=== PATIENT | male | born 1980 | race Caucasian/White ===

== ENCOUNTER 2017-04-15 12:23 | Inpatient (IN) | payer OTHER ==
[~2017-04-15] VITALS: Ht 177.8 cm; Wt 70.3 kg
[2017-04-15 15:00] VITALS: BP 103/67
[2017-04-15] MEDS ORDERED: ONDANSETRON PF 4 MG/2 ML VIAL. IV PRN (15:00)
[2017-04-15] MEDS ORDERED: ZOLPIDEM 5 MG TABLET. PO PRN (15:00)
[2017-04-15] MEDS ORDERED: ACETAMINOPHEN 325 MG TABLET. PO PRN (15:00)
[2017-04-15] MEDS: IV NORMAL SALINE 1000ML BAG 1,000 ML IV SCH (15:21)
[2017-04-15] MEDS: fentaNYL PF VIAL 100 MCG/2 ML VIAL IV PRN ×3 (15:21→20:39)
--- NOTE | 2017-04-15 15:45 | PDOC2 ---
GI CONSULT Reason For Consult: Choledocholithiasis HPI: HPI: 36 y/o male, , transferred from [facility]. Reports onset of abd pain last night while "trying to get comfortable in bed." First periumbilical then shifted to chest ("tightness" "hard to breath") and to RUQ. Currently comes in waves, mostly RUQ. Vomited once, small amount, says because of pain. Has never had pain this severe before but perhaps has had a few episodes of abd discomfort (periumbilical) after over-eating. Usually resolves quickly/ spontaneously, has tried Tums a few times which maybe help. This episode was much different w/ persistent, very severe pain. No fever, diarrhea, constipation, bleeding. No h/o reflux/heartburn. Rare NSAID use for MONTIEL. No previous EGD or colonoscopy. Last ate yesterday evening, hot dog and pizza. Workup at [facility]: unremarkable CBC, bili 1.2, AST 41, ALT 80, Alk Phos 66, tox screen + cannabinoids. CT A/P showed dilated gallbladder w/ intra/extrahepatic ductal dilation (17mm), concern for occult distal CBD calculi/stricture. Abd US showed cholelithiasis, intra/extrahepatic bile duct dilation (11mm) - can't exclude CBD stone, and echogenic foci in right hepatic lobe suggestive calculus or inspissated bile. PMH: PMH: wisdom teeth extraction, vasectomy FH: Family History: No pertinent hx Social History: Smoke: No ALCOHOL: none Drugs: Marijuana ROS: GEN: Denies fevers, chills, sweats HEENT: Denies blurred vision, sore throat CV: chest pain resolved RESP: SOA resolved GI: Per HPI : Denies hematuria, dysuria ENDO: Denies weight changes NEURO: Denies confusion, dizziness MSK: Denies weakness, joint pain/swelling SKIN: Denies jaundice, pruritus Vitals: Vitals: Vital Signs Date Time Temp Pulse Resp B/P (MAP) Pulse Ox O2 Delivery O2 Flow Rate FiO2 04/15/17 15:21 18 Room Air Labs: Labs: Reviewed from [facility] per HPI. Allergies: Coded Allergies: No Known Drug Allergies (Unverified , 04/15/17) Medications: Current Medications Medications (Trade) Dose Ordered Sig/[place] Route PRN Reason Start Time Stop Time Status Last Admin Dose Admin Sodium Chloride 1,000 ml @ 100 mls/hr Q10H IV 04/15/17 15:00 04/15/17 15:21 Fentanyl Citrate (Fentanyl 2ml Vial) 50 mcg PRN Q2HR PRN IV PAIN 04/15/17 15:00 04/15/17 15:21 Imaging: Imaging: Reviewed from [facility] per HPI. PE: GEN: NAD HEENT: Atraumatic, PERRL LUNGS: CTAB anteriorly HEART: RRR ABD: BS+, soft, most RUQ discomfort, some epigastric EXTREMITY: No edema SKIN: No rashes, no jaundice NEURO/PSYCH: A & O 3 A/P: A/P: Upper abd pain, cholelithiasis, dilated bile duct -pain onset last night ---> periumbilical to RUQ and chest, now mostly RUQ -imaging and labs from [facility] as above -- D/w Dr. Coronel, Dr. Elmore. MRCP for further eval - r/o choledochocele. Surgery consulted. LEW JAUREGUI April 15, 2017 15:45
--- NOTE | 2017-04-15 16:11 | PDOC1 ---
History and Physical Date of Admission Date of Admission DATE: 04/15/17 TIME: 16:08 Identification/Chief Complaint Chief Complaint abd pain Problems: Source Source: Chart review, Patient History of Present Illness History of Present Illness 36 y/o male, , transferred from [facility]. Reports onset of abd pain last night while "trying to get comfortable in bed." First periumbilical then shifted to chest ("tightness" "hard to breath") and to RUQ. Currently comes in waves, mostly RUQ. Vomited once, small amount, says because of pain. Has never had pain this severe before but perhaps has had a few episodes of abd discomfort (periumbilical) after over-eating. Usually resolves quickly/ spontaneously, has tried Tums a few times which maybe help. This episode was much different w/ persistent, very severe pain. No fever, diarrhea, constipation, bleeding. No h/o reflux/heartburn. Rare NSAID use for MONTIEL. No previous EGD or colonoscopy. Last ate yesterday evening, hot dog and pizza. Workup at [facility]: unremarkable CBC, bili 1.2, AST 41, ALT 80, Alk Phos 66, tox screen + cannabinoids. CT A/P showed dilated gallbladder w/ intra/extrahepatic ductal dilation (17mm), concern for occult distal CBD calculi/stricture. Abd US showed cholelithiasis, intra/extrahepatic bile duct dilation (11mm) - can't exclude CBD stone, and echogenic foci in right hepatic lobe suggestive calculus or inspissated bile. Past Medical History Cardiovascular: No pertinent hx Pulmonary: No pertinent hx GI: No pertinent hx Heme/Onc: No pertinent hx Hepatobiliary: No pertinent hx Psych: No pertinent hx Rheumatologic: No pertinent hx Infectious disease: No pertinent hx ENT: No pertinent hx Renal/: No pertinent hx Past Surgical History Past Surgical History: Other (vasectomy) Family History Family History: Heart Disease (NOS) Social History Smoke: No ALCOHOL: none Drugs: Marijuana Current Medications Current Medications Current Medications Sodium Chloride 1,000 ml @ 100 mls/hr Q10H IV Last administered on 04/15/17 15:21; Start 04/15/17 at 15:00 Fentanyl Citrate (Fentanyl 2ml Vial) 50 mcg PRN Q2HR PRN IV PAIN Last administered on 04/15/17 15:21; Start 04/15/17 at 15:00 Oxycodone HCl (Roxicodone) 5 mg PRN Q6HRS PRN PO PAIN; Start 04/15/17 at 15:00 Acetaminophen (Tylenol) 650 mg PRN Q6HRS PRN PO pain; Start 04/15/17 at 15:00 Ondansetron HCl (Zofran) 4 mg PRN Q8HRS PRN IV NAUSEA/VOMITING; Start 04/15/17 at 15:00 Zolpidem Tartrate (Ambien) 5 mg PRN QHS PRN PO INSOMNIA, MAY REPEAT IN 1HR; Start 04/15/17 at 15:00 Allergies Allergies: Coded Allergies: No Known Drug Allergies (Unverified , 04/15/17) ROS General: No: Chills, Night Sweats, Fatigue, Malaise, Appetite, Other PSYCHOLOGICAL ROS: No: Anxiety, Behavioral Disorder, Concentration difficultie , Decreased libido, Depression, Disorientation, Hallucinations, Hostility, Irritablity, Memory difficulties, Mood Swings, Obsessive thoughts, Physical abuse, Sexual abuse, Sleep disturbances, Suicidal ideation, Other Eyes: No Blurry vision, No Decreased vision, No Double vision, No Dry eyes, No Excessive tearing, No Eye Pain, No Itchy Eyes, No Loss of vision, No Photophobia , No Scotomata, No Uses contacts, No Uses glasses, No Other HEENT: No: Heacaches, Visual Changes, Hearing change, Nasal congestion, Nasal discharge, Oral lesions, Sinus pain, Sore Throat, Epistaxis, Sneezing, Snoring, Tinnitus, Vertigo, Vocal changes, Other Respiratory: No: Cough, Hemoptysis, Orthopnea, Pleuritic Pain, Shortness of breath, SOB with excertion, Sputum Changes, Stridor, Tachypnea, Wheezing, Other Cardiovascular: No Chest Pain, No Palpitations, No Orthopnea, No Paroxysmal Noc. Dyspnea, No Edema, No Lt Headedness, No Other Gastrointestinal: Yes Nausea, Yes Abdominal Pain, No Vomiting, No Diarrhea, No Constipation, No Melena, No Hematochezia, No Other Genitourinary: No Dysuria, No Frequency, No Incontinence, No Hematuria, No Retention, No Discharge, No Urgency, No Pain, No Flank Pain, No Other, No , No , No , No , No , No , No Musculoskeletal: No Gait Disturbance, No Joint Pain, No Joint Stiffness, No Joint Swelling, No Muscle Pain, No Muscular Weakness, No Pain In:, No Swelling In:, No Other Neurological: No Behavorial Changes, No Bowel/Bladder ControlChng, No Confusion , No Dizziness, No Gait Disturbance, No Headaches, No Impaired Coord/balance, No Memory Loss, No Numbness/Tingling, No Seizures, No Speech Problems, No Tremors, No Visual Changes, No Weakness, No Other Skin: No Dry Skin, No Eczema, No Hair Changes, No Lumps, No Mole Changes, No Mottling, No Nail Changes, No Pruritus, No Rash, No Skin Lesion Changes, No Other, No Acne Physical Exam General: Alert, Oriented X3, Cooperative, mild distress (abd pain) HEENT: Atraumatic, EOMI, Mucous membr. moist/pink Lungs: Clear to auscultation, Normal air movement Heart: S1S2, no murmurs Abdomen: Normal bowel sounds, Soft (tender, RUQ) Rectal Exam: not examined Extremities: No clubbing, No edema, Normal pulses Skin: No rashes, No breakdown, No significant lesion Neuro: Normal speech, Normal tone, Sensation intact Vitals Vitals Vital Signs Date Time Temp Pulse Resp B/P (MAP) Pulse Ox O2 Delivery O2 Flow Rate FiO2 04/15/17 15:21 18 Room Air 04/15/17 15:00 98.4 68 103/67 (79) 98 98.4 VTE Prophylaxis Ordered VTE Prophylaxis Devices: Yes VTE Pharmacological Prophylaxi: No Assessment/Plan Assessment/Plan acute abd pain choledochalithiasis CBD dilation Gen surg and GI consult NPO for now, may try clears tonight if no intervention until AM MRCP ordered, discussed with GI team HENRY CORTÉS MD April 15, 2017 16:11
[2017-04-15 17:10] LABS: BASO % 1 % (0-3); EOS % 2 % (0-3); HEMATOCRIT 40.6 % (39.0-53.0); HEMOGLOBIN 14.1 g/dL (13.0-17.5); LYMPH # 1.4 x10^3/uL (1.0-4.8); LYMPH % 19 % (24-48); MEAN CORPUSCULAR HEMOGLOBIN 30 pg (25-35); MEAN CORPUSCULAR HGB CONC 35 g/dL (31-37); MEAN CORPUSCULAR VOLUME 87 fL (79-100); MONO % 9 % (0-9); NEUT % 70 % (31-73); PLATELET COUNT 177 x10^3/uL (140-400); RED BLOOD COUNT 4.65 x10^6/uL (4.30-5.70); RED CELL DISTRIBUTION WIDTH 13.1 % (11.5-14.5); WHITE BLOOD COUNT 7.7 x10^3/uL (4.0-11.0)
[2017-04-15 19:19] LABS: ALBUMIN 3.7 g/dL (3.4-5.0); ALBUMIN/GLOBULIN RATIO 1.2 (1.0-1.7); CALCIUM 9.5 mg/dL (8.5-10.1); CREATININE 0.9 mg/dL (0.7-1.3); GFR 96.6; TOTAL BILIRUBIN 2.3 mg/dL (0.2-1.0); TOTAL PROTEIN 6.8 g/dL (6.4-8.2)
[2017-04-15 19:57] VITALS: BP 102/80
--- NOTE | 2017-04-15 21:46 | ACF ---
Admission Forms Criteria ABDOMINAL PAIN Clinical Indications for Admission to Inpatient Care (Place 'X' for any and all applicable criteria): Admission is indicated for ANY ONE of the following(1)(2)(3)(4)(5): [X ]I. Inpatient admission required rather than observation care (Also use Abdominal Pain: Observation Care, as appropriate) because of ANY ONE of the following: [ ]a) Severe pain requiring acute inpatient management [X ]b) Identification of etiology/finding that requires inpatient care (eg, aortic dissection, free air) [ ]c) Absent bowel sounds with complete ileus(6) [ ]d) Suspected toxic megacolon [ ]e) Severe electrolyte abnormalities requiring inpatient care [ ]f) High fever or infection requiring inpatient admission as indicated by ANY ONE of following(7)(8): [ ] i) Appropriate outpatient or observational care antimicrobial treatment unavailable, not effective, or not feasible [ ] ii) Documented bacteremia [ ] iii) Temperature > 104.9 degrees F (oral) [ ] iv) T >103.1 F (oral) or < 96.8 F(rectal) that does not respond to all emergency treatment measures [ ]g) Signs of intestinal obstruction [B] [ ]h) Hemodynamic instability [ ]i) IV fluid to replace significant ongoing losses (greater than 3 L/m2 per day) (12)(13) [ ]j) Percutaneous or open drainage (eg, abscess, biliary tract ) procedures [ ]k) Parenteral nutrition regimen that must be implemented on inpatient basis [ ]l) Other condition,treatment or monitoring requiring inpatient admission. [ ]II. Peritoneal signs present [ ]III. Surgery needed that cannot be performed on an ambulatory basis. [ ]IV. Evaluation requires patient to not eat or drink for extended period ( eg, more than 24 hours). [ ]V. Contraindications and/or Inappropriate clinical situations for Observational Care in patients with abdominal pain, when ANY ONE of the following is required: [ ]a) Thorough evaluation is required to prevent catastrophic events due to delays in diagnosing (e.g.Mesenteric ischemia) 1,3 [ ]b) Patient with severe pathology or with chronic symptoms unlikely to improve in the ED stay (3) [ ]. General contraindications and/or Inappropriate clinical situations for Observational Care in patients with abdominal pain, when ANY ONE of the following is required: [ ]a) Prediction of prolongation of LOS based on ANY ONE of the following may be considered as a contraindication for observational care 2, 3, 4, 5, 6, 7, 8, 9, 10, 11 [ ]i) Age > 65 yrs. [ ]ii) Patient arriving by ambulance [ ]iii) Patient with high acuity [ ]iv) Patient requiring vital sign monitoring [ ]v) Patient on IV medication [ ]b) Systolic blood pressures 180mmHg 3,12 [ ]c) Patient with altered mental status including delirium and other alteration of consciousness, (3) [ ]d) Patient whose discharge disposition will be to a residential home or rehabilitation home should not be managed in Emergency Department Observation Unit. CMS rule requires 3 days hospital stay before such placement.3,13 [ ]e) Patient with failure to thrive due to broad array of etiologies 3,16,17 [ ]f) Inability to ambulate 3,14 Extended stay beyond goal length of stay may be needed for(2)(3): [ ]a) Persistent abdominal pain with suspected intra-abdominal process [ ]b) Diagnosed condition requiring continued stay (e.g., pancreatitis, complicated diverticulitis) [ ]c) Surgery (e.g., colectomy) The original [facility] content created by [employer] has been revised. The portions of the content which have been revised are identified through the use of italic text or in bold, and [facility] has neither reviewed nor approved the modified material.All other unmodified content is copyright [employer] [facility]. Please see references footnoted in the original [facility] edition 2016 Admission Criteria Met?: Yes BRYANT HERNANDEZ April 15, 2017 21:46
[2017-04-15 23:24] VITALS: BP 102/55
[2017-04-16] MEDS: fentaNYL PF VIAL 100 MCG/2 ML VIAL IV PRN ×6 (02:28→22:03)
[2017-04-16] MEDS: IV NORMAL SALINE 1000ML BAG 1,000 ML IV SCH (03:37)
[2017-04-16 03:46] VITALS: BP 103/58
[2017-04-16 07:10] VITALS: BP 117/81
--- NOTE | 2017-04-16 08:57 | RAD ---
MRCP, 04/15/2017: History: Dilated bile ducts Imaging was performed in axial and coronal planes utilizing a variety of imaging sequences including T2 weighted, fat suppressed T2 weighted and opposed phase gradient echo sequences. Heavily T2 weighted MRCP sequences were also performed with 2-D and 3-D reconstructions produced. At least 2 gallstones are present in the gallbladder. The gallbladder is now within normal limits in size. It was mildly distended on the outside CT study of earlier in the day. The intrahepatic bile ducts are not clearly defined, however, there appear to be scattered areas of ductal enlargement and narrowing, best seen inferiorly in the right lobe. The degree of common bile duct distention has decreased. It currently measures approximately 12 mm in greatest width compared to a measurement of 18 mm on the recent outside CT study. It is of normal caliber in the head of the pancreas and tapers normally at the ampulla. No filling defect is seen in the common duct to suggest a common duct calculus. No hepatic or pancreatic mass is seen. No splenic or renal abnormality is detected. IMPRESSION: 1. Cholelithiasis. 2. Mild gallbladder distention has resolved since earlier in the day, and the degree of common bile duct distention has also diminished. 3. No common duct calculus is identified. 4. Scattered areas of narrowing and dilatation of intrahepatic bile ducts suggesting sclerosing cholangitis.
--- NOTE | 2017-04-16 09:20 | PDOC ---
Subjective: Subjective: Feeling better, less pain. Says Dr. Barrios saw. Objective: Vital Signs: Vital Signs Date Time Temp Pulse Resp B/P (MAP) Pulse Ox O2 Delivery O2 Flow Rate FiO2 04/16/17 07:18 99 Room Air 04/16/17 07:10 97.4 96 18 117/81 (93) 97.4 Labs: Laboratory Tests Test 04/15/17 17:00 White Blood Count 7.7 x10^3/uL Red Blood Count 4.65 x10^6/uL Hemoglobin 14.1 g/dL Hematocrit 40.6 % Mean Corpuscular Volume 87 fL Mean Corpuscular Hemoglobin 30 pg Mean Corpuscular Hemoglobin Concent 35 g/dL Red Cell Distribution Width 13.1 % Platelet Count 177 x10^3/uL Neutrophils (%) (Auto) 70 % Lymphocytes (%) (Auto) 19 % Monocytes (%) (Auto) 9 % Eosinophils (%) (Auto) 2 % Basophils (%) (Auto) 1 % Neutrophils # (Auto) 5.4 x10^3uL Lymphocytes # (Auto) 1.4 x10^3/uL Monocytes # (Auto) 0.7 x10^3/uL Eosinophils # (Auto) 0.1 x10^3/uL Basophils # (Auto) 0.0 x10^3/uL Sodium Level 139 mmol/L Potassium Level 4.0 mmol/L Chloride Level 106 mmol/L Carbon Dioxide Level 26 mmol/L Anion Gap 7 Blood Urea Nitrogen 12 mg/dL Creatinine 0.9 mg/dL Estimated GFR (Cockcroft-Gault) 96.6 BUN/Creatinine Ratio 13 Glucose Level 96 mg/dL Calcium Level 9.5 mg/dL Total Bilirubin 2.3 mg/dL Aspartate Amino Transf (AST/SGOT) 304 U/L Alanine Aminotransferase (ALT/SGPT) 346 U/L Alkaline Phosphatase 69 U/L Total Protein 6.8 g/dL Albumin 3.7 g/dL Albumin/Globulin Ratio 1.2 Imaging: MRCP IMPRESSION: 1. Cholelithiasis. 2. Mild gallbladder distention has resolved since earlier in the day, and the degree of common bile duct distention has also diminished. 3. No common duct calculus is identified. 4. Scattered areas of narrowing and dilatation of intrahepatic bile ducts suggesting sclerosing cholangitis. PE: GEN: NAD LUNGS: CTAB HEART: RRR ABD: RUQ tenderness NEURO/PSYCH: A & O 3 A/P: Upper abd pain, cholelithiasis, dilated bile duct Abnormal MRCP -concern for sclerosing cholangitis -- ERCP w/ brushings this afternoon. Stay NPO. D/w GI lab, RN, pt/family. Would consider cholecystectomy w/ liver bx eventually. LEW JAUREGUI April 16, 2017 09:20
[2017-04-16 09:55] LABS: BASO % 1 % (0-3); EOS % 2 % (0-3); HEMATOCRIT 40.4 % (39.0-53.0); HEMOGLOBIN 14.1 g/dL (13.0-17.5); LYMPH # 1.5 x10^3/uL (1.0-4.8); LYMPH % 25 % (24-48); MEAN CORPUSCULAR HEMOGLOBIN 30 pg (25-35); MEAN CORPUSCULAR HGB CONC 35 g/dL (31-37); MEAN CORPUSCULAR VOLUME 86 fL (79-100); MONO % 7 % (0-9); NEUT % 65 % (31-73); PLATELET COUNT 181 x10^3/uL (140-400); RED BLOOD COUNT 4.68 x10^6/uL (4.30-5.70); RED CELL DISTRIBUTION WIDTH 13.2 % (11.5-14.5); WHITE BLOOD COUNT 5.9 x10^3/uL (4.0-11.0)
[2017-04-16] MEDS ORDERED: LIDOCAINE 2% PF Vial for OR 5 ML VIAL. ONE ×2 (10:10→13:00)
[2017-04-16] MEDS ORDERED: PROPOFOL 20 ML IV ONE ×2 (10:10→12:58)
[2017-04-16] MEDS ORDERED: SUCCINYLCHOLINE 200 MG/10 ML VIAL. ONE ×2 (10:11→13:00)
[2017-04-16 10:16] LABS: ALBUMIN 3.7 g/dL (3.4-5.0); ALBUMIN/GLOBULIN RATIO 1.4 (1.0-1.7); CALCIUM 9.4 mg/dL (8.5-10.1); CREATININE 0.9 mg/dL (0.7-1.3); GFR 96.6; POTASSIUM 4.1 mmol/L (3.5-5.1); TOTAL BILIRUBIN 1.8 mg/dL (0.2-1.0); TOTAL PROTEIN 6.4 g/dL (6.4-8.2)
--- NOTE | 2017-04-16 10:17 | PDOC2 ---
ABRAHAM PUGA Phong INGOT CASTER 04/16/17 1017: CONSULT Date of Consult Date of Consult DATE: 04/16/17 TIME: 10:13 Reason for Consult Reason for Consult: abdominal pain Referring Physician Referring Physician: ER Identification/Chief Complaint Chief Complaint abdominal pain Source Source: Chart review, Patient History of Present Illness Reason for Visit: Acute right sided upper abdominal pain, progressively worsened yesterday. Radiated up chest/epigastric, no improvement Thought it was upset stomach(has occasionally, however this was worse and did not get better) Past Medical History Cardiovascular: No pertinent hx Pulmonary: No pertinent hx GI: No pertinent hx Heme/Onc: No pertinent hx Hepatobiliary: No pertinent hx Psych: No pertinent hx Rheumatologic: No pertinent hx Infectious disease: No pertinent hx ENT: No pertinent hx Renal/: No pertinent hx Past Surgical History Past Surgical History: Other (vasectomy) Family History Family History: Heart Disease (NOS) Social History No ALCOHOL: none Drugs: Marijuana Current Medications Current Medications Current Medications Sodium Chloride 1,000 ml @ 100 mls/hr Q10H IV Last administered on 04/16/17 03:37; Start 04/15/17 at 15:00; Stop 04/16/17 at 10:07; Status DC Fentanyl Citrate (Fentanyl 2ml Vial) 50 mcg PRN Q2HR PRN IV PAIN Last administered on 04/16/17 09:35; Start 04/15/17 at 15:00 Oxycodone HCl (Roxicodone) 5 mg PRN Q6HRS PRN PO PAIN; Start 04/15/17 at 15:00 Acetaminophen (Tylenol) 650 mg PRN Q6HRS PRN PO pain; Start 04/15/17 at 15:00 Ondansetron HCl (Zofran) 4 mg PRN Q8HRS PRN IV NAUSEA/VOMITING; Start 04/15/17 at 15:00 Zolpidem Tartrate (Ambien) 5 mg PRN QHS PRN PO INSOMNIA, MAY REPEAT IN 1HR; Start 04/15/17 at 15:00 Potassium Chloride/Dextrose/ Sod Cl 1,000 ml @ 100 mls/hr Q10H IV ; Start 04/16 at 10:15 Propofol 20 ml @ As Directed STK-MED ONCE IV ; Start 04/16/17 at 10:10; Stop at 10:11; Status DC Lidocaine HCl (Lidocaine Pf 2% Vial) 5 ml STK-MED ONCE .ROUTE ; Start 04/16/17 at 10:10; Stop 04/16/17 at 10:11; Status DC Succinylcholine Chloride (Anectine) 200 mg STK-MED ONCE .ROUTE ; Start 04/16/17 at 10:11; Stop 04/16/17 at 10:12; Status DC Allergies Allergies: Coded Allergies: No Known Drug Allergies (Unverified , 04/16/17) ROS General: YES: Chills, No: Other (fevers) PSYCHOLOGICAL ROS: No: Anxiety, Depression Eyes: No Blurry vision, No Double vision HEENT: No: Heacaches, Sore Throat Hematological and Lymphatic: No: Bleeding Problems, Blood Clots Respiratory: No: Cough, SOB with excertion Cardiovascular: No Chest Pain, No Palpitations Gastrointestinal: Yes Other (see hpi) Genitourinary: No Dysuria, No Hematuria Musculoskeletal: No Joint Pain, No Muscle Pain Neurological: No Confusion, No Numbness/Tingling Skin: No Pruritus, No Rash Physical Exam General: Alert, Oriented X3, Cooperative, No acute distress HEENT: PERRLA, Mucous membr. moist/pink Lungs: Clear to auscultation, Normal air movement Heart: Regular rate, Normal S1, Normal S2, No murmurs Abdomen: Soft, Other (RUQ, epigastric TTP ) Extremities: No clubbing, No cyanosis Skin: No rashes, No breakdown Neuro: Normal gait, Normal speech Psych/Mental Status: Mental status NL, Mood NL MUSCULOSKELETAL: No deformity, No swelling Vitals VITALS Vital Signs Date Time Temp Pulse Resp B/P (MAP) Pulse Ox O2 Delivery O2 Flow Rate FiO2 04/16/17 09:35 Room Air 04/16/17 07:18 99 04/16/17 07:10 97.4 96 18 117/81 (93) 97.4 Labs Labs Laboratory Tests Test 04/15/17 17:00 04/16/17 09:40 White Blood Count 7.7 x10^3/uL (4.0-11.0) 5.9 x10^3/uL (4.0-11.0) Red Blood Count 4.65 x10^6/uL (4.30-5.70) 4.68 x10^6/uL (4.30-5.70) Hemoglobin 14.1 g/dL (13.0-17.5) 14.1 g/dL (13.0-17.5) Hematocrit 40.6 % (39.0-53.0) 40.4 % (39.0-53.0) Mean Corpuscular Volume 87 fL (79-100) 86 fL (79-100) Mean Corpuscular Hemoglobin 30 pg (25-35) 30 pg (25-35) Mean Corpuscular Hemoglobin Concent 35 g/dL (31-37) 35 g/dL (31-37) Red Cell Distribution Width 13.1 % (11.5-14.5) 13.2 % (11.5-14.5) Platelet Count 177 x10^3/uL (140-400) 181 x10^3/uL (140-400) Neutrophils (%) (Auto) 70 % (31-73) 65 % (31-73) Lymphocytes (%) (Auto) 19 % (24-48) 25 % (24-48) Monocytes (%) (Auto) 9 % (0-9) 7 % (0-9) Eosinophils (%) (Auto) 2 % (0-3) 2 % (0-3) Basophils (%) (Auto) 1 % (0-3) 1 % (0-3) Neutrophils # (Auto) 5.4 x10^3uL (1.8-7.7) 3.9 x10^3uL (1.8-7.7) Lymphocytes # (Auto) 1.4 x10^3/uL (1.0-4.8) 1.5 x10^3/uL (1.0-4.8) Monocytes # (Auto) 0.7 x10^3/uL (0.0-1.1) 0.4 x10^3/uL (0.0-1.1) Eosinophils # (Auto) 0.1 x10^3/uL (0.0-0.7) 0.1 x10^3/uL (0.0-0.7) Basophils # (Auto) 0.0 x10^3/uL (0.0-0.2) 0.0 x10^3/uL (0.0-0.2) Sodium Level 139 mmol/L (136-145) Potassium Level 4.0 mmol/L (3.5-5.1) Chloride Level 106 mmol/L (98-107) Carbon Dioxide Level 26 mmol/L (21-32) Anion Gap 7 (6-14) Blood Urea Nitrogen 12 mg/dL (8-26) Creatinine 0.9 mg/dL (0.7-1.3) Estimated GFR (Cockcroft-Gault) 96.6 BUN/Creatinine Ratio 13 (6-20) Glucose Level 96 mg/dL (70-99) Calcium Level 9.5 mg/dL (8.5-10.1) Total Bilirubin 2.3 mg/dL (0.2-1.0) Aspartate Amino Transf (AST/SGOT) 304 U/L (15-37) Alanine Aminotransferase (ALT/SGPT) 346 U/L (16-63) Alkaline Phosphatase 69 U/L (46-116) Total Protein 6.8 g/dL (6.4-8.2) Albumin 3.7 g/dL (3.4-5.0) Albumin/Globulin Ratio 1.2 (1.0-1.7) Laboratory Tests Test 04/15/17 17:00 04/16/17 09:40 White Blood Count 7.7 x10^3/uL (4.0-11.0) 5.9 x10^3/uL (4.0-11.0) Red Blood Count 4.65 x10^6/uL (4.30-5.70) 4.68 x10^6/uL (4.30-5.70) Hemoglobin 14.1 g/dL (13.0-17.5) 14.1 g/dL (13.0-17.5) Hematocrit 40.6 % (39.0-53.0) 40.4 % (39.0-53.0) Mean Corpuscular Volume 87 fL (79-100) 86 fL (79-100) Mean Corpuscular Hemoglobin 30 pg (25-35) 30 pg (25-35) Mean Corpuscular Hemoglobin Concent 35 g/dL (31-37) 35 g/dL (31-37) Red Cell Distribution Width 13.1 % (11.5-14.5) 13.2 % (11.5-14.5) Platelet Count 177 x10^3/uL (140-400) 181 x10^3/uL (140-400) Neutrophils (%) (Auto) 70 % (31-73) 65 % (31-73) Lymphocytes (%) (Auto) 19 % (24-48) 25 % (24-48) Monocytes (%) (Auto) 9 % (0-9) 7 % (0-9) Eosinophils (%) (Auto) 2 % (0-3) 2 % (0-3) Basophils (%) (Auto) 1 % (0-3) 1 % (0-3) Neutrophils # (Auto) 5.4 x10^3uL (1.8-7.7) 3.9 x10^3uL (1.8-7.7) Lymphocytes # (Auto) 1.4 x10^3/uL (1.0-4.8) 1.5 x10^3/uL (1.0-4.8) Monocytes # (Auto) 0.7 x10^3/uL (0.0-1.1) 0.4 x10^3/uL (0.0-1.1) Eosinophils # (Auto) 0.1 x10^3/uL (0.0-0.7) 0.1 x10^3/uL (0.0-0.7) Basophils # (Auto) 0.0 x10^3/uL (0.0-0.2) 0.0 x10^3/uL (0.0-0.2) Sodium Level 139 mmol/L (136-145) Potassium Level 4.0 mmol/L (3.5-5.1) Chloride Level 106 mmol/L (98-107) Carbon Dioxide Level 26 mmol/L (21-32) Anion Gap 7 (6-14) Blood Urea Nitrogen 12 mg/dL (8-26) Creatinine 0.9 mg/dL (0.7-1.3) Estimated GFR (Cockcroft-Gault) 96.6 BUN/Creatinine Ratio 13 (6-20) Glucose Level 96 mg/dL (70-99) Calcium Level 9.5 mg/dL (8.5-10.1) Total Bilirubin 2.3 mg/dL (0.2-1.0) Aspartate Amino Transf (AST/SGOT) 304 U/L (15-37) Alanine Aminotransferase (ALT/SGPT) 346 U/L (16-63) Alkaline Phosphatase 69 U/L (46-116) Total Protein 6.8 g/dL (6.4-8.2) Albumin 3.7 g/dL (3.4-5.0) Albumin/Globulin Ratio 1.2 (1.0-1.7) Assessment/Plan Assessment/Plan abdominal pain abnormal MRCP concerning for sclerosing cholangitis plans for ERCP today, will follow SARA LEMA MD 04/16/17 1241: CONSULT Allergies Allergies: Coded Allergies: No Known Drug Allergies (Unverified , 04/16/17) Assessment/Plan Assessment/Plan Pt out of room for ERCP agree with W/u per GI will follow Thanks! ABRAHAM PUGA APRN April 16, 2017 10:17 SARA LEMA MD April 16, 2017 12:41
[2017-04-16] MEDS: POTASSIUM CL 20MEQ D5-0.45NACL 1,000 ML IV SCH (10:43)
[2017-04-16 10:45] VITALS: BP 121/72
[2017-04-16] MEDS ORDERED: GLYCOPYRROLATE 1 MG/5 ML VIAL. ONE (12:00)
[2017-04-16] MEDS ORDERED: PHENYLEPHRINE in 0.9% NACL PF 1 MG/10 ML DISP.SYRIN. IV ONE (12:00)
[2017-04-16] MEDS ORDERED: IOHEXOL 300 MG/ML 50 ML VIAL. ONE (12:33)
[2017-04-16] MEDS ORDERED: IV RINGERS,LACTATED 1000ML 1,000 ML IV SCH (12:45)
[2017-04-16] MEDS ORDERED: fentaNYL PF VIAL 100 MCG/2 ML VIAL ONE (12:58)
[2017-04-16] MEDS ORDERED: ONDANSETRON PF 4 MG/2 ML VIAL. ONE (13:00)
[2017-04-16] MEDS ORDERED: DEXAMETHASONE SOD PHOS 20 MG/5 ML VIAL. ONE (13:00)
[2017-04-16] MEDS ORDERED: FAMOTIDINE 20 MG/2 ML VIAL ONE (13:00)
[2017-04-16] MEDS ORDERED: IOHEXOL 300 MG/ML 50 ML VIAL. INT CAT ONE (13:50)
--- NOTE | 2017-04-16 14:00 | PDOC4 ---
Operative Note Operative Note ERCP with sphincterotomy Meds Propofol per anesthesia/GOETT Pre-op dx increased LFTS/abnl MRCP/cholelithiasis Post-op dx dilated CBD S/p sphincterotomy without visualized non-visualized cystic duct consistent with cholecystitis Plan serial lfts/amylase/lipase in am lap shaina with liver biopsy if no complications from above PROPECKSAKINA MD April 16, 2017 14:00
[2017-04-16 15:49] LABS: PROTHROMBIN TIME PATIENT 12.9 SEC (11.7-14.0)
--- NOTE | 2017-04-16 17:16 | RAD ---
ERCP, 04/16/2017: History: Dilated bile ducts, abnormal MRCP 14 spot films from an ERCP performed by Dr. Elmore are presented for review. 3 minutes and 17 seconds of fluoroscopy time was utilized. The biliary tree was partially opacified via an endoscopically placed cannula. A sphincterotomy was performed with balloon sweeping of the duct. No definite calculi are identified. The intrahepatic ducts are incompletely opacified.
[2017-04-16 19:05] VITALS: BP 122/84
--- NOTE | 2017-04-16 19:47 | OP ---
DATE OF SURGERY: 04/16/2017 PROCEDURE PERFORMED: Endoscopic retrograde cholangiopancreatography with sphincterotomy. MEDICATIONS RECEIVED: General endotracheal intubation, MiraLax. PREOPERATIVE DIAGNOSIS: Abnormal MRCP with dilated common bile duct and intrahepatic ducts suggestive of primary sclerosing cholangitis with the abnormal ultrasound, cholelithiasis. POSTOPERATIVE DIAGNOSIS: Normal sized common bile duct with possible retained stone, status post sphincterotomy, balloon sweep, and extraction of stones was noted and the intrahepatic ducts were noted to be normal on caliber. The pancreatic duct was not injected. The scope was inserted withdrawn and the patient tolerated the procedure well without immediate complications, no evidence of esophagitis, varices or stricture within the esophagus was then visualized when the stomach. Major pills, otherwise normal as well. DISPOSITION: We will follow labs in the morning, amylase, lipase and liver function tests. If these not elevated, then we will recommend the patient proceed with laparoscopic cholecystectomy for cholelithiasis as well as a drop of liver biopsy to further assess for the abnormalities seen on imaging. SAKINA BURGESS MD DR: SHAHNAZ/thuan JOB#: [id number] / [id number] HENRY Higgins MD
[2017-04-16 23:24] VITALS: BP 111/63
[2017-04-17] VITALS (11 sets, daily range): BP systolic 104–143; BP diastolic 55–94
[2017-04-17] MEDS: POTASSIUM CL 20MEQ D5-0.45NACL 1,000 ML IV SCH ×3 (02:20→16:15)
[2017-04-17 04:29] LABS: BASO % 0 % (0-3); EOS % 0 % (0-3); HEMATOCRIT 40.3 % (39.0-53.0); LYMPH # 0.5 x10^3/uL (1.0-4.8); LYMPH % 7 % (24-48); MEAN CORPUSCULAR HEMOGLOBIN 30 pg (25-35); MEAN CORPUSCULAR HGB CONC 35 g/dL (31-37); MEAN CORPUSCULAR VOLUME 87 fL (79-100); MONO % 5 % (0-9); NEUT % 88 % (31-73); PLATELET COUNT 197 x10^3/uL (140-400); RED BLOOD COUNT 4.62 x10^6/uL (4.30-5.70); RED CELL DISTRIBUTION WIDTH 13.3 % (11.5-14.5); WHITE BLOOD COUNT 7.6 x10^3/uL (4.0-11.0)
[2017-04-17 04:36] LABS: INR 1.1 (0.8-1.1); PROTHROMBIN TIME PATIENT 13.3 SEC (11.7-14.0)
[2017-04-17 04:38] LABS: AMYLASE 75 U/L (25-115)
[2017-04-17 04:39] LABS: ALBUMIN 3.7 g/dL (3.4-5.0); ALBUMIN/GLOBULIN RATIO 1.3 (1.0-1.7); CALCIUM 9.8 mg/dL (8.5-10.1); CREATININE 0.8 mg/dL (0.7-1.3); GFR 110.7; POTASSIUM 4.2 mmol/L (3.5-5.1); TOTAL BILIRUBIN 1.2 mg/dL (0.2-1.0); TOTAL PROTEIN 6.6 g/dL (6.4-8.2)
[2017-04-17] MEDS: fentaNYL PF VIAL 100 MCG/2 ML VIAL IV PRN ×8 (04:56→16:20)
[2017-04-17] MEDS ORDERED: HEPARIN 1,000 UNIT in IV NORMAL SALINE 1,000 ML for SURG PERIOP IRR ONE (06:00)
[2017-04-17 07:33] LABS: PLT ESTIMATE ADEQUATE (ADEQUATE)
--- NOTE | 2017-04-17 08:44 | PDOC ---
PROGRESS NOTES Chief Complaint Chief Complaint late entry Pt seen briefly before ERCP on 04/16 abdominal pain initially thought to be cholecystitis dilated ducts concerning for PSC Vitals Vitals Vital Signs Date Time Temp Pulse Resp B/P (MAP) Pulse Ox O2 Delivery O2 Flow Rate FiO2 04/17/17 07:36 Room Air 04/17/17 05:26 18 04/17/17 03:05 57 104/55 (71) 98 04/16/17 23:24 98.7 98.7 Physical Exam Physical Exam sinus, reg on tele General: No acute distress Heart: Regular rate Extremities: No clubbing, No cyanosis, No edema Skin: No rashes, No breakdown Labs LABS Laboratory Tests Test 04/16/17 09:40 04/16/17 15:30 04/17/17 03:44 White Blood Count 5.9 x10^3/uL (4.0-11.0) 7.6 x10^3/uL (4.0-11.0) Red Blood Count 4.68 x10^6/uL (4.30-5.70) 4.62 x10^6/uL (4.30-5.70) Hemoglobin 14.1 g/dL (13.0-17.5) 14.0 g/dL (13.0-17.5) Hematocrit 40.4 % (39.0-53.0) 40.3 % (39.0-53.0) Mean Corpuscular Volume 86 fL (79-100) 87 fL (79-100) Mean Corpuscular Hemoglobin 30 pg (25-35) 30 pg (25-35) Mean Corpuscular Hemoglobin Concent 35 g/dL (31-37) 35 g/dL (31-37) Red Cell Distribution Width 13.2 % (11.5-14.5) 13.3 % (11.5-14.5) Platelet Count 181 x10^3/uL (140-400) 197 x10^3/uL (140-400) Neutrophils (%) (Auto) 65 % (31-73) 88 % (31-73) Lymphocytes (%) (Auto) 25 % (24-48) 7 % (24-48) Monocytes (%) (Auto) 7 % (0-9) 5 % (0-9) Eosinophils (%) (Auto) 2 % (0-3) 0 % (0-3) Basophils (%) (Auto) 1 % (0-3) 0 % (0-3) Neutrophils # (Auto) 3.9 x10^3uL (1.8-7.7) 6.7 x10^3uL (1.8-7.7) Lymphocytes # (Auto) 1.5 x10^3/uL (1.0-4.8) 0.5 x10^3/uL (1.0-4.8) Monocytes # (Auto) 0.4 x10^3/uL (0.0-1.1) 0.4 x10^3/uL (0.0-1.1) Eosinophils # (Auto) 0.1 x10^3/uL (0.0-0.7) 0.0 x10^3/uL (0.0-0.7) Basophils # (Auto) 0.0 x10^3/uL (0.0-0.2) 0.0 x10^3/uL (0.0-0.2) Sodium Level 141 mmol/L (136-145) 137 mmol/L (136-145) Potassium Level 4.1 mmol/L (3.5-5.1) 4.2 mmol/L (3.5-5.1) Chloride Level 107 mmol/L (98-107) 104 mmol/L (98-107) Carbon Dioxide Level 27 mmol/L (21-32) 25 mmol/L (21-32) Anion Gap 7 (6-14) 8 (6-14) Blood Urea Nitrogen 11 mg/dL (8-26) 11 mg/dL (8-26) Creatinine 0.9 mg/dL (0.7-1.3) 0.8 mg/dL (0.7-1.3) Estimated GFR (Cockcroft-Gault) 96.6 110.7 BUN/Creatinine Ratio 12 (6-20) 14 (6-20) Glucose Level 93 mg/dL (70-99) 125 mg/dL (70-99) Calcium Level 9.4 mg/dL (8.5-10.1) 9.8 mg/dL (8.5-10.1) Total Bilirubin 1.8 mg/dL (0.2-1.0) 1.2 mg/dL (0.2-1.0) Aspartate Amino Transf (AST/SGOT) 139 U/L (15-37) 64 U/L (15-37) Alanine Aminotransferase (ALT/SGPT) 316 U/L (16-63) 249 U/L (16-63) Alkaline Phosphatase 81 U/L (46-116) 76 U/L (46-116) Total Protein 6.4 g/dL (6.4-8.2) 6.6 g/dL (6.4-8.2) Albumin 3.7 g/dL (3.4-5.0) 3.7 g/dL (3.4-5.0) Albumin/Globulin Ratio 1.4 (1.0-1.7) 1.3 (1.0-1.7) Prothrombin Time 12.9 SEC (11.7-14.0) 13.3 SEC (11.7-14.0) Prothromb Time International Ratio 1.0 (0.8-1.1) 1.1 (0.8-1.1) Segmented Neutrophils % 90 % (35-66) Band Neutrophils % 1 % (0-9) Lymphocytes % 5 % (24-48) Monocytes % 4 % (0-10) Platelet Estimate Adequate (ADEQUATE) Erythrocyte Sedimentation Rate 4 (0-15) Amylase Level 75 U/L (25-115) Lipase 278 U/L (73-393) Assessment and Plan Assessmemt and Plan ERCP, bx to follow Problems: Comment Review of Relevant I have reviewed the following items adelina (where applicable) has been applied. Labs Laboratory Tests Test 04/15/17 17:00 04/16/17 09:40 04/16/17 15:30 04/17/17 03:44 White Blood Count 7.7 x10^3/uL (4.0-11.0) 5.9 x10^3/uL (4.0-11.0) 7.6 x10^3/uL (4.0-11.0) Red Blood Count 4.65 x10^6/uL (4.30-5.70) 4.68 x10^6/uL (4.30-5.70) 4.62 x10^6/uL (4.30-5.70) Hemoglobin 14.1 g/dL (13.0-17.5) 14.1 g/dL (13.0-17.5) 14.0 g/dL (13.0-17.5) Hematocrit 40.6 % (39.0-53.0) 40.4 % (39.0-53.0) 40.3 % (39.0-53.0) Mean Corpuscular Volume 87 fL (79-100) 86 fL (79-100) 87 fL (79-100) Mean Corpuscular Hemoglobin 30 pg (25-35) 30 pg (25-35) 30 pg (25-35) Mean Corpuscular Hemoglobin Concent 35 g/dL (31-37) 35 g/dL (31-37) 35 g/dL (31-37) Red Cell Distribution Width 13.1 % (11.5-14.5) 13.2 % (11.5-14.5) 13.3 % (11.5-14.5) Platelet Count 177 x10^3/uL (140-400) 181 x10^3/uL (140-400) 197 x10^3/uL (140-400) Neutrophils (%) (Auto) 70 % (31-73) 65 % (31-73) 88 % (31-73) Lymphocytes (%) (Auto) 19 % (24-48) 25 % (24-48) 7 % (24-48) Monocytes (%) (Auto) 9 % (0-9) 7 % (0-9) 5 % (0-9) Eosinophils (%) (Auto) 2 % (0-3) 2 % (0-3) 0 % (0-3) Basophils (%) (Auto) 1 % (0-3) 1 % (0-3) 0 % (0-3) Neutrophils # (Auto) 5.4 x10^3uL (1.8-7.7) 3.9 x10^3uL (1.8-7.7) 6.7 x10^3uL (1.8-7.7) Lymphocytes # (Auto) 1.4 x10^3/uL (1.0-4.8) 1.5 x10^3/uL (1.0-4.8) 0.5 x10^3/uL (1.0-4.8) Monocytes # (Auto) 0.7 x10^3/uL (0.0-1.1) 0.4 x10^3/uL (0.0-1.1) 0.4 x10^3/uL (0.0-1.1) Eosinophils # (Auto) 0.1 x10^3/uL (0.0-0.7) 0.1 x10^3/uL (0.0-0.7) 0.0 x10^3/uL (0.0-0.7) Basophils # (Auto) 0.0 x10^3/uL (0.0-0.2) 0.0 x10^3/uL (0.0-0.2) 0.0 x10^3/uL (0.0-0.2) Sodium Level 139 mmol/L (136-145) 141 mmol/L (136-145) 137 mmol/L (136-145) Potassium Level 4.0 mmol/L (3.5-5.1) 4.1 mmol/L (3.5-5.1) 4.2 mmol/L (3.5-5.1) Chloride Level 106 mmol/L (98-107) 107 mmol/L (98-107) 104 mmol/L (98-107) Carbon Dioxide Level 26 mmol/L (21-32) 27 mmol/L (21-32) 25 mmol/L (21-32) Anion Gap 7 (6-14) 7 (6-14) 8 (6-14) Blood Urea Nitrogen 12 mg/dL (8-26) 11 mg/dL (8-26) 11 mg/dL (8-26) Creatinine 0.9 mg/dL (0.7-1.3) 0.9 mg/dL (0.7-1.3) 0.8 mg/dL (0.7-1.3) Estimated GFR (Cockcroft-Gault) 96.6 96.6 110.7 BUN/Creatinine Ratio 13 (6-20) 12 (6-20) 14 (6-20) Glucose Level 96 mg/dL (70-99) 93 mg/dL (70-99) 125 mg/dL (70-99) Calcium Level 9.5 mg/dL (8.5-10.1) 9.4 mg/dL (8.5-10.1) 9.8 mg/dL (8.5-10.1) Total Bilirubin 2.3 mg/dL (0.2-1.0) 1.8 mg/dL (0.2-1.0) 1.2 mg/dL (0.2-1.0) Aspartate Amino Transf (AST/SGOT) 304 U/L (15-37) 139 U/L (15-37) 64 U/L (15-37) Alanine Aminotransferase (ALT/SGPT) 346 U/L (16-63) 316 U/L (16-63) 249 U/L (16-63) Alkaline Phosphatase 69 U/L (46-116) 81 U/L (46-116) 76 U/L (46-116) Total Protein 6.8 g/dL (6.4-8.2) 6.4 g/dL (6.4-8.2) 6.6 g/dL (6.4-8.2) Albumin 3.7 g/dL (3.4-5.0) 3.7 g/dL (3.4-5.0) 3.7 g/dL (3.4-5.0) Albumin/Globulin Ratio 1.2 (1.0-1.7) 1.4 (1.0-1.7) 1.3 (1.0-1.7) Prothrombin Time 12.9 SEC (11.7-14.0) 13.3 SEC (11.7-14.0) Prothromb Time International Ratio 1.0 (0.8-1.1) 1.1 (0.8-1.1) Segmented Neutrophils % 90 % (35-66) Band Neutrophils % 1 % (0-9) Lymphocytes % 5 % (24-48) Monocytes % 4 % (0-10) Platelet Estimate Adequate (ADEQUATE) Erythrocyte Sedimentation Rate 4 (0-15) Amylase Level 75 U/L (25-115) Lipase 278 U/L (73-393) Laboratory Tests Test 04/16/17 09:40 04/16/17 15:30 04/17/17 03:44 White Blood Count 5.9 x10^3/uL (4.0-11.0) 7.6 x10^3/uL (4.0-11.0) Red Blood Count 4.68 x10^6/uL (4.30-5.70) 4.62 x10^6/uL (4.30-5.70) Hemoglobin 14.1 g/dL (13.0-17.5) 14.0 g/dL (13.0-17.5) Hematocrit 40.4 % (39.0-53.0) 40.3 % (39.0-53.0) Mean Corpuscular Volume 86 fL (79-100) 87 fL (79-100) Mean Corpuscular Hemoglobin 30 pg (25-35) 30 pg (25-35) Mean Corpuscular Hemoglobin Concent 35 g/dL (31-37) 35 g/dL (31-37) Red Cell Distribution Width 13.2 % (11.5-14.5) 13.3 % (11.5-14.5) Platelet Count 181 x10^3/uL (140-400) 197 x10^3/uL (140-400) Neutrophils (%) (Auto) 65 % (31-73) 88 % (31-73) Lymphocytes (%) (Auto) 25 % (24-48) 7 % (24-48) Monocytes (%) (Auto) 7 % (0-9) 5 % (0-9) Eosinophils (%) (Auto) 2 % (0-3) 0 % (0-3) Basophils (%) (Auto) 1 % (0-3) 0 % (0-3) Neutrophils # (Auto) 3.9 x10^3uL (1.8-7.7) 6.7 x10^3uL (1.8-7.7) Lymphocytes # (Auto) 1.5 x10^3/uL (1.0-4.8) 0.5 x10^3/uL (1.0-4.8) Monocytes # (Auto) 0.4 x10^3/uL (0.0-1.1) 0.4 x10^3/uL (0.0-1.1) Eosinophils # (Auto) 0.1 x10^3/uL (0.0-0.7) 0.0 x10^3/uL (0.0-0.7) Basophils # (Auto) 0.0 x10^3/uL (0.0-0.2) 0.0 x10^3/uL (0.0-0.2) Sodium Level 141 mmol/L (136-145) 137 mmol/L (136-145) Potassium Level 4.1 mmol/L (3.5-5.1) 4.2 mmol/L (3.5-5.1) Chloride Level 107 mmol/L (98-107) 104 mmol/L (98-107) Carbon Dioxide Level 27 mmol/L (21-32) 25 mmol/L (21-32) Anion Gap 7 (6-14) 8 (6-14) Blood Urea Nitrogen 11 mg/dL (8-26) 11 mg/dL (8-26) Creatinine 0.9 mg/dL (0.7-1.3) 0.8 mg/dL (0.7-1.3) Estimated GFR (Cockcroft-Gault) 96.6 110.7 BUN/Creatinine Ratio 12 (6-20) 14 (6-20) Glucose Level 93 mg/dL (70-99) 125 mg/dL (70-99) Calcium Level 9.4 mg/dL (8.5-10.1) 9.8 mg/dL (8.5-10.1) Total Bilirubin 1.8 mg/dL (0.2-1.0) 1.2 mg/dL (0.2-1.0) Aspartate Amino Transf (AST/SGOT) 139 U/L (15-37) 64 U/L (15-37) Alanine Aminotransferase (ALT/SGPT) 316 U/L (16-63) 249 U/L (16-63) Alkaline Phosphatase 81 U/L (46-116) 76 U/L (46-116) Total Protein 6.4 g/dL (6.4-8.2) 6.6 g/dL (6.4-8.2) Albumin 3.7 g/dL (3.4-5.0) 3.7 g/dL (3.4-5.0) Albumin/Globulin Ratio 1.4 (1.0-1.7) 1.3 (1.0-1.7) Prothrombin Time 12.9 SEC (11.7-14.0) 13.3 SEC (11.7-14.0) Prothromb Time International Ratio 1.0 (0.8-1.1) 1.1 (0.8-1.1) Segmented Neutrophils % 90 % (35-66) Band Neutrophils % 1 % (0-9) Lymphocytes % 5 % (24-48) Monocytes % 4 % (0-10) Platelet Estimate Adequate (ADEQUATE) Erythrocyte Sedimentation Rate 4 (0-15) Amylase Level 75 U/L (25-115) Lipase 278 U/L (73-393) Medications Current Medications Sodium Chloride 1,000 ml @ 100 mls/hr Q10H IV Last administered on 04/16/17 03:37; Start 04/15/17 at 15:00; Stop 04/16/17 at 10:07; Status DC Fentanyl Citrate (Fentanyl 2ml Vial) 50 mcg PRN Q2HR PRN IV PAIN Last administered on 04/17/17 07:36; Start 04/15/17 at 15:00 Oxycodone HCl (Roxicodone) 5 mg PRN Q6HRS PRN PO PAIN; Start 04/15/17 at 15:00 Acetaminophen (Tylenol) 650 mg PRN Q6HRS PRN PO pain; Start 04/15/17 at 15:00 Ondansetron HCl (Zofran) 4 mg PRN Q8HRS PRN IV NAUSEA/VOMITING; Start 04/15/17 at 15:00 Zolpidem Tartrate (Ambien) 5 mg PRN QHS PRN PO INSOMNIA, MAY REPEAT IN 1HR; Start 04/15/17 at 15:00 Potassium Chloride/Dextrose/ Sod Cl 1,000 ml @ 100 mls/hr Q10H IV Last administered on 04/17/17 02:20; Start 04/16/17 at 10:15 Propofol 20 ml @ As Directed STK-MED ONCE IV ; Start 04/16/17 at 10:10; Stop at 10:11; Status DC Lidocaine HCl (Lidocaine Pf 2% Vial) 5 ml STK-MED ONCE .ROUTE ; Start 04/16/17 at 10:10; Stop 04/16/17 at 10:11; Status DC Succinylcholine Chloride (Anectine) 200 mg STK-MED ONCE .ROUTE ; Start 04/16/17 at 10:11; Stop 04/16/17 at 10:12; Status DC Ringer's Solution 1,000 ml @ 75 mls/hr [id number] IV Last administered on t 12:34; Start 04/16/17 at 12:45 Iohexol (Omnipaque 300 Mg/ml) 50 ml STK-MED ONCE .ROUTE ; Start 04/16/17 at 12: 33; Stop 04/16/17 at 12:34; Status DC Fentanyl Citrate (Fentanyl 2ml Vial) 100 mcg STK-MED ONCE .ROUTE ; Start at 12:58; Stop 04/16/17 at 12:59; Status DC Propofol 20 ml @ As Directed STK-MED ONCE IV ; Start 04/16/17 at 12:58; Stop at 12:59; Status DC Dexamethasone Sodium Phosphate (Decadron) 20 mg STK-MED ONCE .ROUTE ; Start at 13:00; Stop 04/16/17 at 13:01; Status DC Famotidine (Pepcid) 20 mg STK-MED ONCE .ROUTE ; Start 04/16/17 at 13:00; Stop at 13:01; Status DC Ondansetron HCl (Zofran) 4 mg STK-MED ONCE .ROUTE ; Start 04/16/17 at 13:00; Stop 04/16/17 at 13:01; Status DC Lidocaine HCl (Lidocaine Pf 2% Vial) 5 ml STK-MED ONCE .ROUTE ; Start 04/16/17 at 13:00; Stop 04/16/17 at 13:01; Status DC Succinylcholine Chloride (Anectine) 200 mg STK-MED ONCE .ROUTE ; Start 04/16/17 at 13:00; Stop 04/16/17 at 13:01; Status DC Iohexol (Omnipaque 300 Mg/ml) 50 ml STK-MED ONCE INT CAT Last administered on t 13:50; Start 04/16/17 at 13:50; Stop 04/16/17 at 14:04; Status DC Vitals/I & O Vital Sign - Last 24 Hours 04/16/17 04/16/17 04/16/17 04/16/17 09:35 10:45 12:27 12:27 Temp 98.7 98.2 98.7 98.2 Pulse 79 80 Resp 18 18 B/P (MAP) 121/72 (88) Pulse Ox 99 100 O2 Delivery Room Air Room Air Room Air 04/16/17 04/16/17 04/16/17 04/16/17 14:05 14:25 14:45 16:08 Temp 98.1 98.1 Pulse 85 78 79 Resp 18 20 20 B/P (MAP) 107/56 116/63 118/75 Pulse Ox 98 99 100 O2 Delivery Room Air Room Air Room Air Room Air 04/16/17 04/16/17 04/16/17 04/16/17 19:05 19:25 19:26 22:03 Temp 98.3 98.3 Pulse 92 Resp 18 18 18 B/P (MAP) 122/84 (97) Pulse Ox 97 O2 Delivery Room Air Room Air Room Air Room Air 04/16/17 04/17/17 04/17/17 04/17/17 23:24 03:05 04:56 05:26 Temp 98.7 98.7 Pulse 71 57 Resp 18 18 18 18 B/P (MAP) 111/63 (79) 104/55 (71) Pulse Ox 97 98 O2 Delivery Room Air Room Air Room Air Room Air 04/17/17 07:36 O2 Delivery Room Air Intake and Output 04/16/17 04/16/17 04/17/17 15:00 23:00 07:00 Intake Total 1131.9 ml 2400 ml Balance 1131.9 ml 2400 ml HENRY CORTÉS MD April 17, 2017 08:44
--- NOTE | 2017-04-17 09:08 | PDOC ---
ABRAH[facility] [employer] 04/17/17 0908: SURGICAL PROGRESS NOTE Subjective pain improved discussed surgery, desires to proceed Vital Signs Vital Signs Date Time Temp Pulse Resp B/P (MAP) Pulse Ox O2 Delivery O2 Flow Rate FiO2 04/17/17 07:36 Room Air 04/17/17 07:00 97.7 82 20 116/94 (101) 97 97.7 I&O Intake and Output 04/17/17 07:00 Intake Total 3531.9 ml Balance 3531.9 ml Intake Oral 0 ml IV Total 2331.9 ml Other 1200 ml # Voids 9 General: Alert, Oriented X3, Cooperative, No acute distress Abdomen: Soft, No tenderness Labs Laboratory Tests Test 04/15/17 17:00 04/16/17 09:40 04/16/17 15:30 04/17/17 03:44 White Blood Count 7.7 x10^3/uL (4.0-11.0) 5.9 x10^3/uL (4.0-11.0) 7.6 x10^3/uL (4.0-11.0) Red Blood Count 4.65 x10^6/uL (4.30-5.70) 4.68 x10^6/uL (4.30-5.70) 4.62 x10^6/uL (4.30-5.70) Hemoglobin 14.1 g/dL (13.0-17.5) 14.1 g/dL (13.0-17.5) 14.0 g/dL (13.0-17.5) Hematocrit 40.6 % (39.0-53.0) 40.4 % (39.0-53.0) 40.3 % (39.0-53.0) Mean Corpuscular Volume 87 fL (79-100) 86 fL (79-100) 87 fL (79-100) Mean Corpuscular Hemoglobin 30 pg (25-35) 30 pg (25-35) 30 pg (25-35) Mean Corpuscular Hemoglobin Concent 35 g/dL (31-37) 35 g/dL (31-37) 35 g/dL (31-37) Red Cell Distribution Width 13.1 % (11.5-14.5) 13.2 % (11.5-14.5) 13.3 % (11.5-14.5) Platelet Count 177 x10^3/uL (140-400) 181 x10^3/uL (140-400) 197 x10^3/uL (140-400) Neutrophils (%) (Auto) 70 % (31-73) 65 % (31-73) 88 % (31-73) Lymphocytes (%) (Auto) 19 % (24-48) 25 % (24-48) 7 % (24-48) Monocytes (%) (Auto) 9 % (0-9) 7 % (0-9) 5 % (0-9) Eosinophils (%) (Auto) 2 % (0-3) 2 % (0-3) 0 % (0-3) Basophils (%) (Auto) 1 % (0-3) 1 % (0-3) 0 % (0-3) Neutrophils # (Auto) 5.4 x10^3uL (1.8-7.7) 3.9 x10^3uL (1.8-7.7) 6.7 x10^3uL (1.8-7.7) Lymphocytes # (Auto) 1.4 x10^3/uL (1.0-4.8) 1.5 x10^3/uL (1.0-4.8) 0.5 x10^3/uL (1.0-4.8) Monocytes # (Auto) 0.7 x10^3/uL (0.0-1.1) 0.4 x10^3/uL (0.0-1.1) 0.4 x10^3/uL (0.0-1.1) Eosinophils # (Auto) 0.1 x10^3/uL (0.0-0.7) 0.1 x10^3/uL (0.0-0.7) 0.0 x10^3/uL (0.0-0.7) Basophils # (Auto) 0.0 x10^3/uL (0.0-0.2) 0.0 x10^3/uL (0.0-0.2) 0.0 x10^3/uL (0.0-0.2) Sodium Level 139 mmol/L (136-145) 141 mmol/L (136-145) 137 mmol/L (136-145) Potassium Level 4.0 mmol/L (3.5-5.1) 4.1 mmol/L (3.5-5.1) 4.2 mmol/L (3.5-5.1) Chloride Level 106 mmol/L (98-107) 107 mmol/L (98-107) 104 mmol/L (98-107) Carbon Dioxide Level 26 mmol/L (21-32) 27 mmol/L (21-32) 25 mmol/L (21-32) Anion Gap 7 (6-14) 7 (6-14) 8 (6-14) Blood Urea Nitrogen 12 mg/dL (8-26) 11 mg/dL (8-26) 11 mg/dL (8-26) Creatinine 0.9 mg/dL (0.7-1.3) 0.9 mg/dL (0.7-1.3) 0.8 mg/dL (0.7-1.3) Estimated GFR (Cockcroft-Gault) 96.6 96.6 110.7 BUN/Creatinine Ratio 13 (6-20) 12 (6-20) 14 (6-20) Glucose Level 96 mg/dL (70-99) 93 mg/dL (70-99) 125 mg/dL (70-99) Calcium Level 9.5 mg/dL (8.5-10.1) 9.4 mg/dL (8.5-10.1) 9.8 mg/dL (8.5-10.1) Total Bilirubin 2.3 mg/dL (0.2-1.0) 1.8 mg/dL (0.2-1.0) 1.2 mg/dL (0.2-1.0) Aspartate Amino Transf (AST/SGOT) 304 U/L (15-37) 139 U/L (15-37) 64 U/L (15-37) Alanine Aminotransferase (ALT/SGPT) 346 U/L (16-63) 316 U/L (16-63) 249 U/L (16-63) Alkaline Phosphatase 69 U/L (46-116) 81 U/L (46-116) 76 U/L (46-116) Total Protein 6.8 g/dL (6.4-8.2) 6.4 g/dL (6.4-8.2) 6.6 g/dL (6.4-8.2) Albumin 3.7 g/dL (3.4-5.0) 3.7 g/dL (3.4-5.0) 3.7 g/dL (3.4-5.0) Albumin/Globulin Ratio 1.2 (1.0-1.7) 1.4 (1.0-1.7) 1.3 (1.0-1.7) Prothrombin Time 12.9 SEC (11.7-14.0) 13.3 SEC (11.7-14.0) Prothromb Time International Ratio 1.0 (0.8-1.1) 1.1 (0.8-1.1) Segmented Neutrophils % 90 % (35-66) Band Neutrophils % 1 % (0-9) Lymphocytes % 5 % (24-48) Monocytes % 4 % (0-10) Platelet Estimate Adequate (ADEQUATE) Erythrocyte Sedimentation Rate 4 (0-15) Amylase Level 75 U/L (25-115) Lipase 278 U/L (73-393) Laboratory Tests Test 04/16/17 09:40 04/16/17 15:30 04/17/17 03:44 White Blood Count 5.9 x10^3/uL (4.0-11.0) 7.6 x10^3/uL (4.0-11.0) Red Blood Count 4.68 x10^6/uL (4.30-5.70) 4.62 x10^6/uL (4.30-5.70) Hemoglobin 14.1 g/dL (13.0-17.5) 14.0 g/dL (13.0-17.5) Hematocrit 40.4 % (39.0-53.0) 40.3 % (39.0-53.0) Mean Corpuscular Volume 86 fL (79-100) 87 fL (79-100) Mean Corpuscular Hemoglobin 30 pg (25-35) 30 pg (25-35) Mean Corpuscular Hemoglobin Concent 35 g/dL (31-37) 35 g/dL (31-37) Red Cell Distribution Width 13.2 % (11.5-14.5) 13.3 % (11.5-14.5) Platelet Count 181 x10^3/uL (140-400) 197 x10^3/uL (140-400) Neutrophils (%) (Auto) 65 % (31-73) 88 % (31-73) Lymphocytes (%) (Auto) 25 % (24-48) 7 % (24-48) Monocytes (%) (Auto) 7 % (0-9) 5 % (0-9) Eosinophils (%) (Auto) 2 % (0-3) 0 % (0-3) Basophils (%) (Auto) 1 % (0-3) 0 % (0-3) Neutrophils # (Auto) 3.9 x10^3uL (1.8-7.7) 6.7 x10^3uL (1.8-7.7) Lymphocytes # (Auto) 1.5 x10^3/uL (1.0-4.8) 0.5 x10^3/uL (1.0-4.8) Monocytes # (Auto) 0.4 x10^3/uL (0.0-1.1) 0.4 x10^3/uL (0.0-1.1) Eosinophils # (Auto) 0.1 x10^3/uL (0.0-0.7) 0.0 x10^3/uL (0.0-0.7) Basophils # (Auto) 0.0 x10^3/uL (0.0-0.2) 0.0 x10^3/uL (0.0-0.2) Sodium Level 141 mmol/L (136-145) 137 mmol/L (136-145) Potassium Level 4.1 mmol/L (3.5-5.1) 4.2 mmol/L (3.5-5.1) Chloride Level 107 mmol/L (98-107) 104 mmol/L (98-107) Carbon Dioxide Level 27 mmol/L (21-32) 25 mmol/L (21-32) Anion Gap 7 (6-14) 8 (6-14) Blood Urea Nitrogen 11 mg/dL (8-26) 11 mg/dL (8-26) Creatinine 0.9 mg/dL (0.7-1.3) 0.8 mg/dL (0.7-1.3) Estimated GFR (Cockcroft-Gault) 96.6 110.7 BUN/Creatinine Ratio 12 (6-20) 14 (6-20) Glucose Level 93 mg/dL (70-99) 125 mg/dL (70-99) Calcium Level 9.4 mg/dL (8.5-10.1) 9.8 mg/dL (8.5-10.1) Total Bilirubin 1.8 mg/dL (0.2-1.0) 1.2 mg/dL (0.2-1.0) Aspartate Amino Transf (AST/SGOT) 139 U/L (15-37) 64 U/L (15-37) Alanine Aminotransferase (ALT/SGPT) 316 U/L (16-63) 249 U/L (16-63) Alkaline Phosphatase 81 U/L (46-116) 76 U/L (46-116) Total Protein 6.4 g/dL (6.4-8.2) 6.6 g/dL (6.4-8.2) Albumin 3.7 g/dL (3.4-5.0) 3.7 g/dL (3.4-5.0) Albumin/Globulin Ratio 1.4 (1.0-1.7) 1.3 (1.0-1.7) Prothrombin Time 12.9 SEC (11.7-14.0) 13.3 SEC (11.7-14.0) Prothromb Time International Ratio 1.0 (0.8-1.1) 1.1 (0.8-1.1) Segmented Neutrophils % 90 % (35-66) Band Neutrophils % 1 % (0-9) Lymphocytes % 5 % (24-48) Monocytes % 4 % (0-10) Platelet Estimate Adequate (ADEQUATE) Erythrocyte Sedimentation Rate 4 (0-15) Amylase Level 75 U/L (25-115) Lipase 278 U/L (73-393) Problem List reviewed ERCP noted, normal CBD, balloon sweep, sphincterotomy--LFTS improved plan lap shaina and liver bx today Problems: SARA LEMA MD 04/17/17 1807: SURGICAL PROGRESS NOTE Assessment/Plan Risks, benefits and alternatives discussed with the patient. Risks, including, but not limited to: bleeding, infection, damage to surrounding structures. Pt appears to understand, his questions answered and he agrees to proceed. Problems: NICKEL,ABRAHAM L [employer] April 17, 2017 09:08 SARA LEMA MD April 17, 2017 14:27
[2017-04-17] MEDS ORDERED: NEOSTIGMINE METHYLSULFATE 5 MG/5 ML SYRINGE. ONE (09:42)
[2017-04-17] MEDS ORDERED: IV RINGERS,LACTATED 1000ML 1,000 ML IV SCH (09:57)
[2017-04-17] MEDS ORDERED: PROCHLORPERAZINE 10 MG/2 ML VIAL. IV PRN (10:00)
[2017-04-17] MEDS ORDERED: MORPHINE SULFATE 2 MG/ML DISP.SYRIN. IV PRN (10:00)
[2017-04-17] MEDS ORDERED: fentaNYL PF VIAL 100 MCG/2 ML VIAL IV PRN (10:00)
[2017-04-17] MEDS ORDERED: ONDANSETRON PF 4 MG/2 ML VIAL. IV PRN ×2 (10:00→15:45)
[2017-04-17] MEDS ORDERED: LIDOCAINE 1% 1 ML SYRINGE. ID PRN (10:00)
--- NOTE | 2017-04-17 11:08 | PDOC ---
Subjective: Subjective: RUQ pain, controlled w/ meds. Objective: Vital Signs: Vital Signs Date Time Temp Pulse Resp B/P (MAP) Pulse Ox O2 Delivery O2 Flow Rate FiO2 04/17/17 07:36 Room Air 04/17/17 07:00 97.7 82 20 116/94 (101) 97 97.7 Labs: Laboratory Tests Test 04/16/17 15:30 04/17/17 03:44 Prothrombin Time 12.9 SEC 13.3 SEC Prothromb Time International Ratio 1.0 1.1 White Blood Count 7.6 x10^3/uL Red Blood Count 4.62 x10^6/uL Hemoglobin 14.0 g/dL Hematocrit 40.3 % Mean Corpuscular Volume 87 fL Mean Corpuscular Hemoglobin 30 pg Mean Corpuscular Hemoglobin Concent 35 g/dL Red Cell Distribution Width 13.3 % Platelet Count 197 x10^3/uL Neutrophils (%) (Auto) 88 % Lymphocytes (%) (Auto) 7 % Monocytes (%) (Auto) 5 % Eosinophils (%) (Auto) 0 % Basophils (%) (Auto) 0 % Neutrophils # (Auto) 6.7 x10^3uL Lymphocytes # (Auto) 0.5 x10^3/uL Monocytes # (Auto) 0.4 x10^3/uL Eosinophils # (Auto) 0.0 x10^3/uL Basophils # (Auto) 0.0 x10^3/uL Segmented Neutrophils % 90 % Band Neutrophils % 1 % Lymphocytes % 5 % Monocytes % 4 % Platelet Estimate Adequate Erythrocyte Sedimentation Rate 4 Sodium Level 137 mmol/L Potassium Level 4.2 mmol/L Chloride Level 104 mmol/L Carbon Dioxide Level 25 mmol/L Anion Gap 8 Blood Urea Nitrogen 11 mg/dL Creatinine 0.8 mg/dL Estimated GFR (Cockcroft-Gault) 110.7 BUN/Creatinine Ratio 14 Glucose Level 125 mg/dL Calcium Level 9.8 mg/dL Total Bilirubin 1.2 mg/dL Aspartate Amino Transf (AST/SGOT) 64 U/L Alanine Aminotransferase (ALT/SGPT) 249 U/L Alkaline Phosphatase 76 U/L Total Protein 6.6 g/dL Albumin 3.7 g/dL Albumin/Globulin Ratio 1.3 Amylase Level 75 U/L Lipase 278 U/L Imaging: ERCP 04/16/17: dilated CBD s/p sphincterotomy without visualized stone, non- visualized cystic duct consistent with cholecystitis PE: GEN: NAD LUNGS: CTAB HEART: RRR ABD: RUQ tenderness NEURO/PSYCH: A & O 3 A/P: Upper abd pain, elevated LFTs, cholelithiasis, dilated bile duct, abnormal MRCP , s/p ERCP w/ sphincterotomy/sweep -elevated LFTs, non-visualized cystic duct -- Plans for cholecystectomy and liver biopsy today. Will follow. LEW JAUREGUI April 17, 2017 11:08
--- NOTE | 2017-04-17 11:14 | PDOC ---
PROGRESS NOTES Chief Complaint Chief Complaint s/p ERCP on 04/16 abdominal pain cholecystitis inflammatory appearance to bile duct systom transaminitis, hyperbili on admit History of Present Illness History of Present Illness feels better pain better pain 2/10, and he is able to tolerate and exam much better no evnt shaina today Vitals Vitals Vital Signs Date Time Temp Pulse Resp B/P (MAP) Pulse Ox O2 Delivery O2 Flow Rate FiO2 04/17/17 07:36 Room Air 04/17/17 07:00 97.7 82 20 116/94 (101) 97 97.7 Physical Exam Physical Exam sinus, reg on tele General: Alert, Oriented X3, Cooperative, No acute distress Heart: Regular rate Lungs: Clear Abdomen: Soft, Other (+ tenderness, much improved, now just RU,) Extremities: No clubbing, No cyanosis, No edema Skin: No rashes, No breakdown Labs LABS Laboratory Tests Test 04/16/17 15:30 04/17/17 03:44 Prothrombin Time 12.9 SEC (11.7-14.0) 13.3 SEC (11.7-14.0) Prothromb Time International Ratio 1.0 (0.8-1.1) 1.1 (0.8-1.1) White Blood Count 7.6 x10^3/uL (4.0-11.0) Red Blood Count 4.62 x10^6/uL (4.30-5.70) Hemoglobin 14.0 g/dL (13.0-17.5) Hematocrit 40.3 % (39.0-53.0) Mean Corpuscular Volume 87 fL (79-100) Mean Corpuscular Hemoglobin 30 pg (25-35) Mean Corpuscular Hemoglobin Concent 35 g/dL (31-37) Red Cell Distribution Width 13.3 % (11.5-14.5) Platelet Count 197 x10^3/uL (140-400) Neutrophils (%) (Auto) 88 % (31-73) Lymphocytes (%) (Auto) 7 % (24-48) Monocytes (%) (Auto) 5 % (0-9) Eosinophils (%) (Auto) 0 % (0-3) Basophils (%) (Auto) 0 % (0-3) Neutrophils # (Auto) 6.7 x10^3uL (1.8-7.7) Lymphocytes # (Auto) 0.5 x10^3/uL (1.0-4.8) Monocytes # (Auto) 0.4 x10^3/uL (0.0-1.1) Eosinophils # (Auto) 0.0 x10^3/uL (0.0-0.7) Basophils # (Auto) 0.0 x10^3/uL (0.0-0.2) Segmented Neutrophils % 90 % (35-66) Band Neutrophils % 1 % (0-9) Lymphocytes % 5 % (24-48) Monocytes % 4 % (0-10) Platelet Estimate Adequate (ADEQUATE) Erythrocyte Sedimentation Rate 4 (0-15) Sodium Level 137 mmol/L (136-145) Potassium Level 4.2 mmol/L (3.5-5.1) Chloride Level 104 mmol/L (98-107) Carbon Dioxide Level 25 mmol/L (21-32) Anion Gap 8 (6-14) Blood Urea Nitrogen 11 mg/dL (8-26) Creatinine 0.8 mg/dL (0.7-1.3) Estimated GFR (Cockcroft-Gault) 110.7 BUN/Creatinine Ratio 14 (6-20) Glucose Level 125 mg/dL (70-99) Calcium Level 9.8 mg/dL (8.5-10.1) Total Bilirubin 1.2 mg/dL (0.2-1.0) Aspartate Amino Transf (AST/SGOT) 64 U/L (15-37) Alanine Aminotransferase (ALT/SGPT) 249 U/L (16-63) Alkaline Phosphatase 76 U/L (46-116) Total Protein 6.6 g/dL (6.4-8.2) Albumin 3.7 g/dL (3.4-5.0) Albumin/Globulin Ratio 1.3 (1.0-1.7) Amylase Level 75 U/L (25-115) Lipase 278 U/L (73-393) Review of Systems Review of Systems abd pain no n/v..d Assessment and Plan Assessmemt and Plan shaina today Problems: Comment Review of Relevant I have reviewed the following items adelina (where applicable) has been applied. Labs Laboratory Tests Test 04/15/17 17:00 04/16/17 09:40 04/16/17 15:30 04/17/17 03:44 White Blood Count 7.7 x10^3/uL (4.0-11.0) 5.9 x10^3/uL (4.0-11.0) 7.6 x10^3/uL (4.0-11.0) Red Blood Count 4.65 x10^6/uL (4.30-5.70) 4.68 x10^6/uL (4.30-5.70) 4.62 x10^6/uL (4.30-5.70) Hemoglobin 14.1 g/dL (13.0-17.5) 14.1 g/dL (13.0-17.5) 14.0 g/dL (13.0-17.5) Hematocrit 40.6 % (39.0-53.0) 40.4 % (39.0-53.0) 40.3 % (39.0-53.0) Mean Corpuscular Volume 87 fL (79-100) 86 fL (79-100) 87 fL (79-100) Mean Corpuscular Hemoglobin 30 pg (25-35) 30 pg (25-35) 30 pg (25-35) Mean Corpuscular Hemoglobin Concent 35 g/dL (31-37) 35 g/dL (31-37) 35 g/dL (31-37) Red Cell Distribution Width 13.1 % (11.5-14.5) 13.2 % (11.5-14.5) 13.3 % (11.5-14.5) Platelet Count 177 x10^3/uL (140-400) 181 x10^3/uL (140-400) 197 x10^3/uL (140-400) Neutrophils (%) (Auto) 70 % (31-73) 65 % (31-73) 88 % (31-73) Lymphocytes (%) (Auto) 19 % (24-48) 25 % (24-48) 7 % (24-48) Monocytes (%) (Auto) 9 % (0-9) 7 % (0-9) 5 % (0-9) Eosinophils (%) (Auto) 2 % (0-3) 2 % (0-3) 0 % (0-3) Basophils (%) (Auto) 1 % (0-3) 1 % (0-3) 0 % (0-3) Neutrophils # (Auto) 5.4 x10^3uL (1.8-7.7) 3.9 x10^3uL (1.8-7.7) 6.7 x10^3uL (1.8-7.7) Lymphocytes # (Auto) 1.4 x10^3/uL (1.0-4.8) 1.5 x10^3/uL (1.0-4.8) 0.5 x10^3/uL (1.0-4.8) Monocytes # (Auto) 0.7 x10^3/uL (0.0-1.1) 0.4 x10^3/uL (0.0-1.1) 0.4 x10^3/uL (0.0-1.1) Eosinophils # (Auto) 0.1 x10^3/uL (0.0-0.7) 0.1 x10^3/uL (0.0-0.7) 0.0 x10^3/uL (0.0-0.7) Basophils # (Auto) 0.0 x10^3/uL (0.0-0.2) 0.0 x10^3/uL (0.0-0.2) 0.0 x10^3/uL (0.0-0.2) Sodium Level 139 mmol/L (136-145) 141 mmol/L (136-145) 137 mmol/L (136-145) Potassium Level 4.0 mmol/L (3.5-5.1) 4.1 mmol/L (3.5-5.1) 4.2 mmol/L (3.5-5.1) Chloride Level 106 mmol/L (98-107) 107 mmol/L (98-107) 104 mmol/L (98-107) Carbon Dioxide Level 26 mmol/L (21-32) 27 mmol/L (21-32) 25 mmol/L (21-32) Anion Gap 7 (6-14) 7 (6-14) 8 (6-14) Blood Urea Nitrogen 12 mg/dL (8-26) 11 mg/dL (8-26) 11 mg/dL (8-26) Creatinine 0.9 mg/dL (0.7-1.3) 0.9 mg/dL (0.7-1.3) 0.8 mg/dL (0.7-1.3) Estimated GFR (Cockcroft-Gault) 96.6 96.6 110.7 BUN/Creatinine Ratio 13 (6-20) 12 (6-20) 14 (6-20) Glucose Level 96 mg/dL (70-99) 93 mg/dL (70-99) 125 mg/dL (70-99) Calcium Level 9.5 mg/dL (8.5-10.1) 9.4 mg/dL (8.5-10.1) 9.8 mg/dL (8.5-10.1) Total Bilirubin 2.3 mg/dL (0.2-1.0) 1.8 mg/dL (0.2-1.0) 1.2 mg/dL (0.2-1.0) Aspartate Amino Transf (AST/SGOT) 304 U/L (15-37) 139 U/L (15-37) 64 U/L (15-37) Alanine Aminotransferase (ALT/SGPT) 346 U/L (16-63) 316 U/L (16-63) 249 U/L (16-63) Alkaline Phosphatase 69 U/L (46-116) 81 U/L (46-116) 76 U/L (46-116) Total Protein 6.8 g/dL (6.4-8.2) 6.4 g/dL (6.4-8.2) 6.6 g/dL (6.4-8.2) Albumin 3.7 g/dL (3.4-5.0) 3.7 g/dL (3.4-5.0) 3.7 g/dL (3.4-5.0) Albumin/Globulin Ratio 1.2 (1.0-1.7) 1.4 (1.0-1.7) 1.3 (1.0-1.7) Prothrombin Time 12.9 SEC (11.7-14.0) 13.3 SEC (11.7-14.0) Prothromb Time International Ratio 1.0 (0.8-1.1) 1.1 (0.8-1.1) Segmented Neutrophils % 90 % (35-66) Band Neutrophils % 1 % (0-9) Lymphocytes % 5 % (24-48) Monocytes % 4 % (0-10) Platelet Estimate Adequate (ADEQUATE) Erythrocyte Sedimentation Rate 4 (0-15) Amylase Level 75 U/L (25-115) Lipase 278 U/L (73-393) Laboratory Tests Test 04/16/17 15:30 04/17/17 03:44 Prothrombin Time 12.9 SEC (11.7-14.0) 13.3 SEC (11.7-14.0) Prothromb Time International Ratio 1.0 (0.8-1.1) 1.1 (0.8-1.1) White Blood Count 7.6 x10^3/uL (4.0-11.0) Red Blood Count 4.62 x10^6/uL (4.30-5.70) Hemoglobin 14.0 g/dL (13.0-17.5) Hematocrit 40.3 % (39.0-53.0) Mean Corpuscular Volume 87 fL (79-100) Mean Corpuscular Hemoglobin 30 pg (25-35) Mean Corpuscular Hemoglobin Concent 35 g/dL (31-37) Red Cell Distribution Width 13.3 % (11.5-14.5) Platelet Count 197 x10^3/uL (140-400) Neutrophils (%) (Auto) 88 % (31-73) Lymphocytes (%) (Auto) 7 % (24-48) Monocytes (%) (Auto) 5 % (0-9) Eosinophils (%) (Auto) 0 % (0-3) Basophils (%) (Auto) 0 % (0-3) Neutrophils # (Auto) 6.7 x10^3uL (1.8-7.7) Lymphocytes # (Auto) 0.5 x10^3/uL (1.0-4.8) Monocytes # (Auto) 0.4 x10^3/uL (0.0-1.1) Eosinophils # (Auto) 0.0 x10^3/uL (0.0-0.7) Basophils # (Auto) 0.0 x10^3/uL (0.0-0.2) Segmented Neutrophils % 90 % (35-66) Band Neutrophils % 1 % (0-9) Lymphocytes % 5 % (24-48) Monocytes % 4 % (0-10) Platelet Estimate Adequate (ADEQUATE) Erythrocyte Sedimentation Rate 4 (0-15) Sodium Level 137 mmol/L (136-145) Potassium Level 4.2 mmol/L (3.5-5.1) Chloride Level 104 mmol/L (98-107) Carbon Dioxide Level 25 mmol/L (21-32) Anion Gap 8 (6-14) Blood Urea Nitrogen 11 mg/dL (8-26) Creatinine 0.8 mg/dL (0.7-1.3) Estimated GFR (Cockcroft-Gault) 110.7 BUN/Creatinine Ratio 14 (6-20) Glucose Level 125 mg/dL (70-99) Calcium Level 9.8 mg/dL (8.5-10.1) Total Bilirubin 1.2 mg/dL (0.2-1.0) Aspartate Amino Transf (AST/SGOT) 64 U/L (15-37) Alanine Aminotransferase (ALT/SGPT) 249 U/L (16-63) Alkaline Phosphatase 76 U/L (46-116) Total Protein 6.6 g/dL (6.4-8.2) Albumin 3.7 g/dL (3.4-5.0) Albumin/Globulin Ratio 1.3 (1.0-1.7) Amylase Level 75 U/L (25-115) Lipase 278 U/L (73-393) Medications Current Medications Sodium Chloride 1,000 ml @ 100 mls/hr Q10H IV Last administered on 04/16/17 03:37; Start 04/15/17 at 15:00; Stop 04/16/17 at 10:07; Status DC Fentanyl Citrate (Fentanyl 2ml Vial) 50 mcg PRN Q2HR PRN IV PAIN Last administered on 04/17/17 10:04; Start 04/15/17 at 15:00 Oxycodone HCl (Roxicodone) 5 mg PRN Q6HRS PRN PO PAIN; Start 04/15/17 at 15:00 Acetaminophen (Tylenol) 650 mg PRN Q6HRS PRN PO pain; Start 04/15/17 at 15:00 Ondansetron HCl (Zofran) 4 mg PRN Q8HRS PRN IV NAUSEA/VOMITING; Start 04/15/17 at 15:00 Zolpidem Tartrate (Ambien) 5 mg PRN QHS PRN PO INSOMNIA, MAY REPEAT IN 1HR; Start 04/15/17 at 15:00 Potassium Chloride/Dextrose/ Sod Cl 1,000 ml @ 100 mls/hr Q10H IV Last administered on 04/17/17t 02:20; Start 04/16/17 at 10:15 Propofol 20 ml @ As Directed STK-MED ONCE IV ; Start 04/16/17 at 10:10; Stop at 10:11; Status DC Lidocaine HCl (Lidocaine Pf 2% Vial) 5 ml STK-MED ONCE .ROUTE ; Start 04/16/17 at 10:10; Stop 04/16/17 at 10:11; Status DC Succinylcholine Chloride (Anectine) 200 mg STK-MED ONCE .ROUTE ; Start 04/16/17 at 10:11; Stop 04/16/17 at 10:12; Status DC Ringer's Solution 1,000 ml @ 75 mls/hr [id number] IV Last administered on t 12:34; Start 04/16/17 at 12:45 Iohexol (Omnipaque 300 Mg/ml) 50 ml STK-MED ONCE .ROUTE ; Start 04/16/17 at 12: 33; Stop 04/16/17 at 12:34; Status DC Fentanyl Citrate (Fentanyl 2ml Vial) 100 mcg STK-MED ONCE .ROUTE ; Start at 12:58; Stop 04/16/17 at 12:59; Status DC Propofol 20 ml @ As Directed STK-MED ONCE IV ; Start 04/16/17 at 12:58; Stop at 12:59; Status DC Dexamethasone Sodium Phosphate (Decadron) 20 mg STK-MED ONCE .ROUTE ; Start at 13:00; Stop 04/16/17 at 13:01; Status DC Famotidine (Pepcid) 20 mg STK-MED ONCE .ROUTE ; Start 04/16/17 at 13:00; Stop at 13:01; Status DC Ondansetron HCl (Zofran) 4 mg STK-MED ONCE .ROUTE ; Start 04/16/17 at 13:00; Stop 04/16/17 at 13:01; Status DC Lidocaine HCl (Lidocaine Pf 2% Vial) 5 ml STK-MED ONCE .ROUTE ; Start 04/16/17 at 13:00; Stop 04/16/17 at 13:01; Status DC Succinylcholine Chloride (Anectine) 200 mg STK-MED ONCE .ROUTE ; Start 04/16/17 at 13:00; Stop 04/16/17 at 13:01; Status DC Iohexol (Omnipaque 300 Mg/ml) 50 ml STK-MED ONCE INT CAT Last administered on t 13:50; Start 04/16/17 at 13:50; Stop 04/16/17 at 14:04; Status DC Phenylephrine HCl 1 mg STK-MED ONCE IV ; Start 04/16/17 at 12:00; Stop 04/17/17 at 08:45; Status DC Glycopyrrolate (Robinul) 1 mg STK-MED ONCE .ROUTE ; Start 04/16/17 at 12:00; Stop 04/17/17 at 08:45; Status DC Cefazolin Sodium/ Dextrose 50 ml @ 100 mls/hr 1X PREOP PRN IV zoning assistant to OR; Start 04/17/17 at 09:15; Stop 04/18/17 at 18:00 Neostigmine Methylsulfate 5 mg STK-MED ONCE .ROUTE ; Start 04/17/17 at 09:42; Stop 04/17/17 at 09:43; Status DC Ondansetron HCl (Zofran) 4 mg PRN Q6HRS PRN IV NAUSEA/VOMITING; Start 04/17/17 at 10:00; Stop 04/18/17 at 09:59 Fentanyl Citrate (Fentanyl 2ml Vial) 25 mcg PRN Q5MIN PRN IV MILD PAIN; Start 04/17/17 at 10:00; Stop 04/18/17 at 09:59 Fentanyl Citrate (Fentanyl 2ml Vial) 50 mcg PRN Q5MIN PRN IV MODERATE PAIN; Start 04/17/17 at 10:00; Stop 04/18/17 at 09:59 Morphine Sulfate 1 mg PRN Q10MIN PRN IV SEVERE PAIN; Start 04/17/17 at 10:00; Stop 04/18/17 at 09:59 Ringer's Solution 1,000 ml @ 0 mls/hr Q0M IV ; Start 04/17/17 at 09:57; Stop at 21:56 Lidocaine HCl 2 ml PRN 1X PRN ID PRIOR TO IV START; Start 04/17/17 at 10:00; Stop 04/18/17 at 09:59 Hydromorphone HCl (Dilaudid) 0.5 mg PRN Q10MIN PRN IV SEV PAIN, Second choice; Start 04/17/17 at 10:00; Stop 04/18/17 at 09:59 Prochlorperazine Edisylate (Compazine) 5 mg PACU PRN PRN IV NAUSEA, MRX1; Start 04/17/17 at 10:00; Stop 04/18/17 at 09:59 Vitals/I & O Vital Sign - Last 24 Hours 04/16/17 04/16/17 04/16/17 04/16/17 12:27 12:27 14:05 14:25 Temp 98.2 98.1 98.2 98.1 Pulse 80 85 78 Resp 18 18 20 B/P (MAP) 107/56 116/63 Pulse Ox 100 98 99 O2 Delivery Room Air Room Air Room Air 04/16/17 04/16/17 04/16/17 04/16/17 14:45 16:08 19:05 19:25 Temp 98.3 98.3 Pulse 79 92 Resp 20 18 B/P (MAP) 118/75 122/84 (97) Pulse Ox 100 97 O2 Delivery Room Air Room Air Room Air Room Air 04/16/17 04/16/17 04/16/17 04/17/17 19:26 22:03 23:24 03:05 Temp 98.7 98.7 Pulse 71 57 Resp 18 18 18 18 B/P (MAP) 111/63 (79) 104/55 (71) Pulse Ox 97 98 O2 Delivery Room Air Room Air Room Air Room Air 04/17/17 04/17/17 04/17/17 04/17/17 04:56 05:26 07:00 07:36 Temp 97.7 97.7 Pulse 82 Resp 18 18 20 B/P (MAP) 116/94 (101) Pulse Ox 97 O2 Delivery Room Air Room Air Room Air Room Air Intake and Output 04/16/17 04/16/17 04/17/17 14:59 22:59 06:59 Intake Total 1131.9 ml 2400 ml Balance 1131.9 ml 2400 ml HENRY CORTÉS MD April 17, 2017 11:14
[2017-04-17] MEDS ORDERED: ROCURONIUM 50 MG/5 ML VIAL. ONE (13:47)
[2017-04-17] MEDS ORDERED: LIDOCAINE 2% PF Vial for OR 5 ML VIAL. ONE (13:50)
[2017-04-17] MEDS ORDERED: PROPOFOL 20 ML IV ONE (13:50)
[2017-04-17] MEDS ORDERED: fentaNYL PF VIAL 250 MCG/5 ML VIAL ONE (14:09)
[2017-04-17] MEDS ORDERED: BISACODYL 10 MG SUPP.RECT. ONE (14:17)
[2017-04-17] MEDS ORDERED: SURGICEL HEMOSTAT 2X3 EACH. ONE (14:17)
[2017-04-17] MEDS ORDERED: IOHEXOL 300 MG/ML 50 ML VIAL. ONE (14:17)
[2017-04-17] MEDS ORDERED: BUPIVACAINE-EPI 0.5%-1:200000 50 ML VIAL. ONE (14:17)
[2017-04-17] MEDS ORDERED: GLYCOPYRROLATE 1 MG/5 ML VIAL. ONE (14:56)
[2017-04-17] MEDS ORDERED: SEVOFLURANE 61 TO 120 MINUTES. IH ONE (15:20)
--- NOTE | 2017-04-17 15:37 | RAD ---
Intraoperative cholangiogram, 04/17/2017: History: Cholecystectomy 4 spot films from surgery are presented for review. Contrast has been injected into the cystic duct remnant. 0.32 minutes of fluoroscopy time was utilized. The common bile duct is moderately dilated. The partially opacified intrahepatic bile ducts are mildly dilated. There is irregularity and beading of a duct in the right lobe of the liver as noted on previous studies. This raises the possibility of sclerosing cholangitis or the sequelae of previous infection. A neoplastic etiology is less likely. No filling defect is seen in the common duct to suggest retained stone. There is flow of contrast into the duodenum at the ampulla. No contrast extravasation is seen. IMPRESSION: 1. No evidence of a retained common duct calculus. 2. Intrahepatic and hepatic biliary ductal dilatation. 3. Irregular beading of a duct in the right lobe of the liver.
[2017-04-17] MEDS ORDERED: KETOROLAC 15 MG/ML VIAL. IV PRN (15:45)
[2017-04-17] MEDS ORDERED: 0.9 % SODIUM CHLORIDE 10 ML DISP.SYRIN. IV PRN (15:45)
[2017-04-17] MEDS ORDERED: DEXTROSE 50% 25 GM / 50ML DISP.SYRIN. IV PRN (15:45)
--- NOTE | 2017-04-17 15:53 | PDOC ---
BRIEF OPERATIVE NOTE Pre-Op Diagnosis Choledocholithiasis Post-Op Diagnosis same Procedure Performed Lap shaina with grams, liver biopsy Surgeon Denis Anesthesia Type: General, Local Blood Loss 50 IV Fluid 1000 Specimens Obtained GB Findings wnl ioc Complications none Additional Remarks [id number] SARA LEMA MD April 17, 2017 15:53
[2017-04-17] MEDS: IV RINGERS,LACTATED 1000ML 1,000 ML IV SCH (16:00)
[2017-04-17] MEDS: HYDROmorphone 2 MG/ML VIAL IV PRN ×6 (16:26→17:43)
[2017-04-17] MEDS: oxyCODONE IR 5 MG TABLET PO PRN (20:22)
[2017-04-17] MEDS: HYDROcodone/APAP 5/325MG 1 TAB TABLET PO PRN (20:22)
[2017-04-17] MEDS: DOCUSATE SODIUM 100 MG CAPSULE. PO SCH (20:23)
--- NOTE | 2017-04-17 20:45 | OP ---
DATE OF SURGERY: 04/17/2017 REFERRING PHYSICIANS: Dr. Genevieve Coronel, Dr. Bravo Elmore, Dr. Marlene Acharya. PREOPERATIVE DIAGNOSIS: Choledocholithiasis. POSTOPERATIVE DIAGNOSES: Choledocholithiasis, cholecystitis. PROCEDURES: Laparoscopic cholecystectomy with intraoperative cholangiogram and liver biopsy. SURGEON: Daniel Barrios MD ESTIMATED BLOOD LOSS: 50. FLUIDS: 1000 mL. COMPLICATIONS: None. FINDINGS: Extensive scarring of the cystic duct area and the gallbladder, chronic in nature. Grossly normal-appearing liver, somewhat dilated common bile duct. INDICATIONS: A 36-year-old male `who presents with complaints of right upper quadrant abdominal pain. Imaging was concerning for choledocholithiasis, possible sclerosing cholangitis. ERCP has been performed with clearance of the bile duct. Subsequently, it was felt the patient best be served by laparoscopic cholecystectomy with intraoperative cholangiogram and liver biopsy. The patient was informed of the risks, benefits and alternatives of the procedure, risks including but not limited to bleeding, infection, damage to the surrounding structures, risk of anesthesia, risk of an open procedure. The patient appears to understand, his insightful questions were answered and he agrees to proceed. DESCRIPTION OF PROCEDURE: After obtaining informed consent, the patient was taken to the operating room, induced under general endotracheal anesthetic. The patient was prepped and draped in usual fashion in the anterior abdominal wall. A 0.5% Marcaine with epinephrine was injected in the supraumbilical area and incision was made using 15 blade scalpel. A 5 mm nonbladed trocar was introduced in the abdominal cavity under direct vision of the laparoscope. Pneumoperitoneum was established. Additional 12 port was placed in the epigastrium, another 5 mm port was placed in the right upper quadrant, all under direct vision of the laparoscope. The abdominal cavity was explored. Visualized portion of viscera was normal in appearance. There was no evidence of trocar injury. The liver was grossly normal in appearance. Attempts at obtaining a liver biopsy with a Abhijeet-Cut needle was unsuccessful, most likely secondary to the soft, normal liver parenchyma. As such, a biopsy was performed using EndoShears of the left lobe of the liver, excising a normal piece of liver. This was passed off the field and sent to pathology for evaluation. The gallbladder was grasped. It had extensive adhesions, which were chronic in nature. These were taken down using careful sharp dissection, was noted to be a very large common bile duct. The cystic duct was somewhat adherent to this, it was carefully dissected off. Circumferential dissection was performed of the cystic duct at the cystic duct infundibulum junction. Cystic artery was identified and divided between clips. Clips placed on the cystic duct infundibulum junction. Incision was made in the cystic duct using EndoShears. Cholangiogram catheter was introduced and cholangiogram was obtained. Cholangiogram demonstrated mildly dilated common bile duct. There was concern for irregularity of the duct of the right lobe of the liver, has free flow into the duodenum. Cholangiogram catheter was removed. Multiple clips were placed on cystic duct stump including Hem-o-jose and the cystic duct was divided. Gallbladder was taken off gallbladder fossa sharply using electrocautery. Gallbladder was placed in EndoCatch bag and brought out through the epigastric port and passed off the field and sent to pathology for evaluation. The abdominal cavity was copiously irrigated with normal saline solution. There was no evidence of bleeding or other pathology at the time of closure. All ports removed under direct vision of laparoscope. There was no evidence of port site bleeding. Fascial defect in the epigastrium was reapproximated using interrupted 0 Vicryl stitch using Endo Close. All skin incisions were reapproximated using multiple interrupted 4-0 Monocryl in a subcuticular fashion. Sterile dressing was placed over all wounds. The patient tolerated the procedure well and was discharged to recovery room in stable condition. All counts were correct. There were no immediate complications. DANIEL BARRIOS MD DR: YAEL/thuan JOB#: [id number] / [id number] GENEVIEVE Higgins MD, SCOTT MD SILVA, CATHERINE MD MTDD
[2017-04-18] MEDS: HYDROcodone/APAP 5/325MG 1 TAB TABLET PO PRN ×2 (01:48→06:23)
[2017-04-18] MEDS: POTASSIUM CL 20MEQ D5-0.45NACL 1,000 ML IV SCH (01:50)
[2017-04-18] MEDS: IV RINGERS,LACTATED 1000ML 1,000 ML IV SCH (01:50)
[2017-04-18] MEDS: oxyCODONE IR 5 MG TABLET PO PRN ×2 (03:05→09:20)
[2017-04-18 03:36] VITALS: BP 103/78
[2017-04-18 07:00] VITALS: BP 127/83
--- NOTE | 2017-04-18 08:08 | PDOC ---
SURGICAL PROGRESS NOTE Subjective Pt reports feeling better today, tashia PO, mild incisional pain Vital Signs Vital Signs Date Time Temp Pulse Resp B/P (MAP) Pulse Ox O2 Delivery O2 Flow Rate FiO2 04/18/17 07:00 97.9 79 20 127/83 (98) 99 97.9 04/18/17 06:23 Room Air 04/17/17 16:09 8.0 I&O Intake and Output 04/18/17 07:00 Intake Total 730 ml Output Total 150 ml Balance 580 ml Intake Oral 730 ml Output Urine Total 100 ml Estimated Blood Loss 50 ml # Voids 4 General: Alert, Oriented X3, Cooperative, No acute distress Abdomen: Soft, No tenderness, Other (dressing c/d/i) Labs Laboratory Tests Test 04/16/17 09:40 04/16/17 15:30 04/17/17 03:44 White Blood Count 5.9 x10^3/uL (4.0-11.0) 7.6 x10^3/uL (4.0-11.0) Red Blood Count 4.68 x10^6/uL (4.30-5.70) 4.62 x10^6/uL (4.30-5.70) Hemoglobin 14.1 g/dL (13.0-17.5) 14.0 g/dL (13.0-17.5) Hematocrit 40.4 % (39.0-53.0) 40.3 % (39.0-53.0) Mean Corpuscular Volume 86 fL (79-100) 87 fL (79-100) Mean Corpuscular Hemoglobin 30 pg (25-35) 30 pg (25-35) Mean Corpuscular Hemoglobin Concent 35 g/dL (31-37) 35 g/dL (31-37) Red Cell Distribution Width 13.2 % (11.5-14.5) 13.3 % (11.5-14.5) Platelet Count 181 x10^3/uL (140-400) 197 x10^3/uL (140-400) Neutrophils (%) (Auto) 65 % (31-73) 88 % (31-73) Lymphocytes (%) (Auto) 25 % (24-48) 7 % (24-48) Monocytes (%) (Auto) 7 % (0-9) 5 % (0-9) Eosinophils (%) (Auto) 2 % (0-3) 0 % (0-3) Basophils (%) (Auto) 1 % (0-3) 0 % (0-3) Neutrophils # (Auto) 3.9 x10^3uL (1.8-7.7) 6.7 x10^3uL (1.8-7.7) Lymphocytes # (Auto) 1.5 x10^3/uL (1.0-4.8) 0.5 x10^3/uL (1.0-4.8) Monocytes # (Auto) 0.4 x10^3/uL (0.0-1.1) 0.4 x10^3/uL (0.0-1.1) Eosinophils # (Auto) 0.1 x10^3/uL (0.0-0.7) 0.0 x10^3/uL (0.0-0.7) Basophils # (Auto) 0.0 x10^3/uL (0.0-0.2) 0.0 x10^3/uL (0.0-0.2) Sodium Level 141 mmol/L (136-145) 137 mmol/L (136-145) Potassium Level 4.1 mmol/L (3.5-5.1) 4.2 mmol/L (3.5-5.1) Chloride Level 107 mmol/L (98-107) 104 mmol/L (98-107) Carbon Dioxide Level 27 mmol/L (21-32) 25 mmol/L (21-32) Anion Gap 7 (6-14) 8 (6-14) Blood Urea Nitrogen 11 mg/dL (8-26) 11 mg/dL (8-26) Creatinine 0.9 mg/dL (0.7-1.3) 0.8 mg/dL (0.7-1.3) Estimated GFR (Cockcroft-Gault) 96.6 110.7 BUN/Creatinine Ratio 12 (6-20) 14 (6-20) Glucose Level 93 mg/dL (70-99) 125 mg/dL (70-99) Calcium Level 9.4 mg/dL (8.5-10.1) 9.8 mg/dL (8.5-10.1) Total Bilirubin 1.8 mg/dL (0.2-1.0) 1.2 mg/dL (0.2-1.0) Aspartate Amino Transf (AST/SGOT) 139 U/L (15-37) 64 U/L (15-37) Alanine Aminotransferase (ALT/SGPT) 316 U/L (16-63) 249 U/L (16-63) Alkaline Phosphatase 81 U/L (46-116) 76 U/L (46-116) Total Protein 6.4 g/dL (6.4-8.2) 6.6 g/dL (6.4-8.2) Albumin 3.7 g/dL (3.4-5.0) 3.7 g/dL (3.4-5.0) Albumin/Globulin Ratio 1.4 (1.0-1.7) 1.3 (1.0-1.7) Prothrombin Time 12.9 SEC (11.7-14.0) 13.3 SEC (11.7-14.0) Prothromb Time International Ratio 1.0 (0.8-1.1) 1.1 (0.8-1.1) Segmented Neutrophils % 90 % (35-66) Band Neutrophils % 1 % (0-9) Lymphocytes % 5 % (24-48) Monocytes % 4 % (0-10) Platelet Estimate Adequate (ADEQUATE) Erythrocyte Sedimentation Rate 4 (0-15) Amylase Level 75 U/L (25-115) Lipase 278 U/L (73-393) Assessment/Plan s/p lap shaina, liver biopsy ADAT OK to d/c today if OK with other physicians Remove dressings in AM, OK to shower then F/U with Denis in two weeks Problems: SARA LEMA MD April 18, 2017 08:07
[2017-04-18] MEDS: DOCUSATE SODIUM 100 MG CAPSULE. PO SCH (08:47)
--- NOTE | 2017-04-18 08:55 | PDOC ---
Subjective: Subjective: Still has RUQ pain, now different/improved. Tolerating PO, passing gas. Would like to DC TC. Objective: Vital Signs: Vital Signs Date Time Temp Pulse Resp B/P (MAP) Pulse Ox O2 Delivery O2 Flow Rate FiO2 04/18/17 07:00 97.9 79 20 127/83 (98) 99 97.9 04/18/17 06:23 Room Air 04/17/17 16:09 8.0 Imaging: IOC 04/17/17 IMPRESSION: 1. No evidence of a retained common duct calculus. 2. Intrahepatic and hepatic biliary ductal dilatation. 3. Irregular beading of a duct in the right lobe of the liver. PE: GEN: NAD LUNGS: CTAB HEART: RRR ABD: RUQ tenderness NEURO/PSYCH: A & O 3 A/P: Upper abd pain Elevated LFTs Cholelithiasis, dilated bile duct, abnormal MRCP S/p ERCP w/ sphincterotomy/sweep S/p lap cholecystectomy w/ liver biopsy -- Improved. DC per surgery/primary. Follow-up liver bx results. LEW JAUREGUI April 18, 2017 08:55
[2017-04-18] MEDS ORDERED: DOCU-27 PO (09:00)
[2017-04-18] MEDS ORDERED: HYDR-2666 PO (09:00)
[2017-04-18 11:00] VITALS: BP 121/80
[2017-04-20 13:10] LABS: SMOOTH MUSCLE AB 7 Units (0-19)
[2017-04-21 17:13] LABS: C ANCA <1:20 titer (Neg:<1:20)
--- NOTE | 2017-04-22 08:30 | PATHOLOGY ---
PATHOLOGY REPORT * * * * * * * * FINAL DIAGNOSIS: A. Gallbladder, cholecystectomy: - Cholelithiasis. - Cholesterolosis. - Chronic cholecystitis. B. Liver, wedge biopsy: - Results to be reported separately. COMMENT: There are multiple calculi present within the gallbladder lumen. Sections of the gallbladder show cholesterolosis and active chronic inflammation. There is no evidence of malignancy. (JPM:; d/t: 04/21/17) REPORT ELECTRONICALLY SIGNED BY: Luis Mcknight M.D. DATE/TIME: 04/22/2017 08:29 * * * * * * * * GROSS PATHOLOGY: A. Received in formalin labeled "Lazarus Vang, gallbladder and contents," is a 8.6 x 4.0 x 3.6 cm, intact gallbladder with green soliman serosal surfaces. Opening the gallbladder reveals velvety and bile-stained mucosa with mild, diffuse cholesterolosis and an average wall thickness of 0.1 cm. Multiple yellow-green, multinodular calculi are present and no masses are noted grossly. Dramatic Director sections from the body and fundus are submitted along with the proximal margin in cassette A1. B. The specimen is received in formalin, labeled "Lazarus Vang, liver biopsy." Received is a 0.9 x 0.9 x 0.6 cm segment of orange soliman soft tissue. The specimen is trisected and submitted entirely in cassette B1. (KAH; 04/18/2017) INITIAL CPT CODE(S): A; 64883 B; 19114, 89492, 90580, 92679, 69910, 12110 Professional services [place] [address] Technical services performed by [facility] at [address] [place] [address], [facility] [address] [address]. SPECIMEN(S) RECEIVED: A.Gallbladder with contents B.Liver biopsy CLINICAL HISTORY: None provided PATIENT: LAZARUS VANG /AGE: 605/25/1983 (Age: 33) PATIENT #: [id number] ALT CASE #: SPECIMEN COLLECTION DATE: 04/17/2017 SPECIMEN RECEIVED DATE: 04/18/2017 [facility] - [address] [place] [address] - PHONE: [phone] * * * END OF REPORT * * *
== END 2017-04-18 12:06 | disposition home or self-care (01) | DRG 419 ==
LOC: 4 NORTH 13:56
PROVIDERS: ADMIT Internal Medicine; ATTEND Internal Medicine
PROC: BF101ZZ Fluoroscopy of Bile Ducts using Low Osmolar Contrast (ICD-10-PCS; 2017-04-16)
PROC: 0FC98ZZ Extirpation of Matter from Common Bile Duct, Via Natural or Artificial Opening Endoscopic (ICD-10-PCS; 2017-04-16)
PROC: 0F798ZZ Dilation of Common Bile Duct, Via Natural or Artificial Opening Endoscopic (ICD-10-PCS; principal; 2017-04-16 13:00)
PROC: 0FT44ZZ Resection of Gallbladder, Percutaneous Endoscopic Approach (ICD-10-PCS; 2017-04-17)
PROC: 0FB04ZX Excision of Liver, Percutaneous Endoscopic Approach, Diagnostic (ICD-10-PCS; 2017-04-17)
DX: K80.64 Calculus of gallbladder and bile duct with chronic cholecystitis without obstruction (principal); G47.00 Insomnia, unspecified; Z82.49 Family history of ischemic heart disease and other diseases of the circulatory system; Z98.52 Vasectomy status
CPT/HCPCS: 36415; 74181; 74300; 74328; 80053; 82150; 83690; 85007; 85027; 85610; 85651; 86021; 86255; 88304; 88307; 88313; C1726; C1757; C1782; J0330; J0690; J1100; J1170; J2370; J2405; J2704; J2710; J3010; J3490; J7030; J7120; Q9967; S0028